=== PATIENT | female | born 1940 | race Caucasian/White ===

== ENCOUNTER 2023-10-06 08:25 | Emergency (ER) | payer MEDICARE, SELFPAY ==
[2023-10-06] VITALS (20 sets, daily range): BP systolic 94–146; BP diastolic 66–109; PULSE 79–162; RESP 18–20; TEMP 36.5; O2SAT 93–99; BMI 34.8
--- NOTE | 2023-10-06 08:38 | ED_ITS ---
HPI - Arrhythmia/Palpitations General Chief Complaint: Arrhythmia/Palpitations Stated Complaint: erratic pulse Time Seen by Provider: 10/06/23 08:38 Source: patient, family, RN notes reviewed and old records reviewed Mode of arrival: ambulatory Limitations: no limitations History of Present Illness HPI narrative: 83-year-old female who comes in today with generalized weakness starting this morning. She had breakfast around 6:30 AM and did not feel better. Has a pacemaker. Does not take any medications currently. No chest pain or shortness of breath. Says she got her pacemaker for a syncopal episode, unsure what her rhythm was at that time. Related Data Previous Rx's ?Medication ?Instructions ?Recorded apixaban 5 mg tablet (Eliquis) 5 mg PO BID #60 tabs 10/06/23 metoprolol succinate 25 mg 25 mg PO DAILY #30 tabs 10/06/23 tablet,extended release 24 hr Allergies Allergy/AdvReac Type Severity Reaction Status Date / Time Penicillins Allergy Verified 10/06/23 10:14 Exam Narrative: Exam Narrative: General: Well-developed and well-nourished, no acute distress Head: Atraumatic and normocephalic Eyes: Pupils are equal reactive, extraocular motions intact, conjunctiva clear ENT: External nose and ears are normal, posterior pharynx without erythema or exudate Neck: No midline cervical tenderness, full spontaneous range of motion the neck, trachea midline, no adenopathy Heart: Tachycardic and irregular Lungs: Clear to auscultation bilaterally without wheezes or crackles Abdomen: Soft, nontender, nondistended with active bowel sounds Musculoskeletal: No tenderness, deformity, or edema Neurologic: Awake, alert, and oriented x3, no gross focal neurologic deficits, cranial nerves intact as tested Psych: Mood and affect are appropriate Skin: No rashes Const: Vital Signs, click to edit/add: Vital Signs - 24 hr 10/06/23 08:28 10/06/23 08:33 10/06/23 08:38 Temperature 97.7 F Pulse Rate 151 H 152 H Pulse Rate [Right Pulse Oximeter] 162 H Respiratory Rate 20 Blood Pressure 126/91 H Blood Pressure [Ri ght Upper Arm] 146/88 H Pulse Oximetry 98 95 98 Oxygen Delivery Me thod Room Air 10/06/23 08:41 10/06/23 08:45 10/06/23 09:00 Temperature Pulse Rate 158 H 159 H 82 Pulse Rate [Right Pulse Oximeter] Respiratory Rate Blood Pressure 109/89 Blood Pressure [Ri ght Upper Arm] Pulse Oximetry 98 98 97 Oxygen Delivery Me thod 10/06/23 09:02 10/06/23 09:15 10/06/23 09:30 Temperature Pulse Rate 92 125 H 130 H Pulse Rate [Right Pulse Oximeter] Respiratory Rate Blood Pressure 119/78 Blood Pressure [Ri ght Upper Arm] Pulse Oximetry 94 95 96 Oxygen Delivery Me thod 10/06/23 09:42 10/06/23 09:45 10/06/23 10:00 Temperature Pulse Rate 102 H 90 108 H Pulse Rate [Right Pulse Oximeter] Respiratory Rate Blood Pressure 94/66 Blood Pressure [Ri ght Upper Arm] Pulse Oximetry 95 95 94 Oxygen Delivery Me thod 10/06/23 10:21 10/06/23 10:22 10/06/23 10:30 Temperature Pulse Rate 117 H 121 H 112 H Pulse Rate [Right Pulse Oximeter] Respiratory Rate Blood Pressure 134/109 H Blood Pressure [Ri ght Upper Arm] Pulse Oximetry 99 96 96 Oxygen Delivery Me thod 10/06/23 10:42 10/06/23 10:45 Temperature Pulse Rate 89 92 Pulse Rate [Right Pulse Oximeter] Respiratory Rate Blood Pressure 131/85 Blood Pressure [Ri ght Upper Arm] Pulse Oximetry 93 96 Oxygen Delivery Me thod Course Course ED Course: Patient seen and examined, prior records reviewed. Patient presents today with generalized weakness starting overnight, noted to be in atrial fibrillation with RVR on exam. No chest pain or shortness of breath with this and blood pressure is reassuring. Patient has pacemaker, unsure with the settings are. Will contact [facility] to discuss and plan to initiate metoprolol IV. Patient is not currently anticoagulated Reevaluation(s) Time of Reevaluation #1: 08:53 Reevaluation #1: Care discussed with Dr. Keller, [facility]. Confirm that patient had pacemaker placed for complete heart block, most recent interrogation at the end of August she was mostly in sinus rhythm with only 4.7% atrial pacing. Will aim for rate/rhythm control with beta-sissy, initiate Eliquis and follow- up with [facility] Time of Reevaluation #2: 09:31 Reevaluation #2: Patient with improvement of heart rate to the 90s but then did increase again. Labs ordered and independently interpreted by me with normal CBC, normal basic metabolic panel, negative troponin. Additional metoprolol ordered and will continue to monitor. Time of Reevaluation #3: 09:55 Reevaluation #3: Patient recheck, heart rate 80-110 after 2nd dose of metoprolol. We discussed atrial fibrillation and treatment of this. Discussed rate control versus rhythm control and follow-up plan. Labs independently interpreted by me with normal BNP but elevated D-dimer. CT PE study is ordered as patient has no history of atrial fibrillation and certainly pulmonary embolism could precipitate this. Additional Reevaluation(s): 10:[address] scan independently interpreted by me with small airway air trapping, no central pulmonary embolism. Heart rate in the 80s to 100s, will continue to monitor and still anticipate discharge. 1059 a.m. reviewed radiology interpretation of CT scan which shows some small airway trapping but no other acute findings. Heart rate consistently 80-100 after metoprolol, the oral dose likely is starting to have an affect now and should have continued improvement. Patient stable for discharge with outpatient follow-up with cardiology. Vital Signs Vital signs: Initial Vital Signs Temperature 97.7 F 10/06/23 08:28 Temperature Source Temporal Artery Scan 10/06/23 08:28 Pulse Rate 162 H 10/06/23 08:28 Respiratory Rate 20 10/06/23 08:28 Blood Pressure 146/88 H 10/06/23 08:28 Blood Pressure Mean 107 H 10/06/23 08:28 Blood Pressure Position Sitting 10/06/23 08:28 Pulse Oximetry 98 10/06/23 08:28 Oxygen Delivery Method Room Air 10/06/23 08:28 Vital Signs Temperature 97.7 F 10/06/23 08:28 Pulse Rate 162 H 10/06/23 08:28 Respiratory Rate 20 10/06/23 08:28 Blood Pressure 146/88 H 10/06/23 08:28 Pulse Oximetry 98 10/06/23 08:28 Oxygen Delivery Method Room Air 10/06/23 08:28 Temperature 97.7 F 10/06/23 08:28 Pulse Rate 92 10/06/23 10:45 Respiratory Rate 20 10/06/23 08:28 Blood Pressure 131/85 10/06/23 10:42 Pulse Oximetry 96 10/06/23 10:45 Oxygen Delivery Method Room Air 10/06/23 08:28 Medications Administered Medications: Discontinued Medications Generic Name Dose Route Start Last Admin Trade Name Hank PRN Reason Stop Dose Admin Apixaban 5 mg 10/06/23 08:55 10/06/23 09:17 Apixaban 5 Mg Tablet PO 10/06/23 08:56 5 mg ONCE ONE Administration Sodium Chloride 1,000 mls @ 1,000 mls/hr 10/06/23 09:00 10/06/23 09:17 0.9 % Sodium Chloride 1000 Ml IV 10/06/23 09:59 1,000 mls/hr .Q1H BRI Administration Metoprolol Succinate 25 mg 10/06/23 08:54 10/06/23 09:17 Metoprolol Succinate (Xl) 25 Mg Tab PO 10/06/23 08:55 25 mg ONCE ONE Administration Metoprolol Tartrate 5 mg 10/06/23 08:42 10/06/23 08:59 Metoprolol Tartrate 1 Mg/Ml Inj IVP 10/06/23 08:43 5 mg ONCE ONE Administration Metoprolol Tartrate 5 mg 10/06/23 09:32 10/06/23 09:41 Metoprolol Tartrate 1 Mg/Ml Inj IVP 10/06/23 09:33 5 mg ONCE ONE Administration MDM - Arrhythmia/Palpitations Lab Data Labs: Lab Results 10/06/23 10/06/23 10/06/23 Range/Units 08:45 08:57 09:23 WBC 6.98 (4.50-11.00) K/uL RBC 4.82 (4.00-5.20) m/uL Hgb 12.9 (12.0-16.0) gm/dL Hct 41.1 (33.0-51.0) % MCV 85 (80-100) fL MCH 27 (26-34) pg MCHC 31 L (32-36) gm/dL RDW Coeff of Mae 14.8 (11.5-15.5) % Plt Count 362 (140-440) K/uL Neut % (Auto) 70.3 (42.0-72.0) % Lymph % (Auto) 17.3 L (20-44) % [place] % (Auto) 8.7 (0.0-11.0) % Eos % (Auto) 2.7 (0.0-7.0) % Baso % (Auto) 0.7 (0.0-3.0) % Neut # (Auto) 4.90 (1.7-7.0) K/uL Lymph # (Auto) 1.20 (0.90-2.90) K/uL [place] # (Auto) 0.60 (0.00-0.90) K/UL Eos # (Auto) 0.19 (0.00-0.50) K/uL Baso # (Auto) 0.05 (0.00-0.30) K/uL Abs Immat Gran (auto) 0.02 (0.00-0.30) K/uL Imm/Tot Granulo (auto) 0.3 % D-Dimer Quant (PE/DVT) 1.18 H (0.00-0.50) ug/ml Sodium 137 (135-149) mmol/L Potassium 3.9 (3.6-5.1) mmol/L Chloride 107 (96-114) mmol/L Carbon Dioxide 21 (20-32) mmol/L Anion Gap 9 (7-15) mEq/L BUN 25 (7-30) mg/dL Creatinine 0.9 (0.5-1.5) mg/dL Estimated Creat Clear 34.90 Estimated GFR 64 ml/min Glucose 102 (60-115) mg/dL Calcium 9.1 (8.4-10.6) mg/dL Magnesium 2.1 (1.5-2.6) mg/dL NT-Pro-B Natriuret Pep 915 pg/mL Urine Color Yellow (Yellow) Urine Appearance Clear (Clear) Urine pH 5.0 (5.0-8.5) Ur Specific [place] <= 1.005 (1.000-1.030) Urine Protein Negative (Negative) Urine Glucose (UA) Negative (Negative) Urine Ketones Negative (Negative) Urine Blood Negative (Negative) Urine Nitrite Negative (Negative) Urine Bilirubin Negative (Negative) Urine Urobilinogen 0.2 (0.2-1.0) Ur Leukocyte Esterase Trace A (Negative) Urine RBC 0-2 (0-2) Urine WBC 0-2 (0-5) Ur Squamous Epith Cells Few (None-Few) Urine Bacteria None (None) POC Troponin I 0.04 (0.01-0.04) ng/ml Discharge Plan Discharge Clinical Impression: Atrial fibrillation with RVR Patient Disposition: Home, Self-Care Condition: Improved Instructions: A-fib (Atrial Fibrillation) (ED), Blood Thinners (ED) Additional Instructions: 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 If after 2-3 days your heart rate is still consistently over 100, increase the dose of metoprolol to 2 tablets daily Activity Level: Activity as Tolerated Discharge Diet: Regular Prescriptions: New metoprolol succinate 25 mg tablet extended release 24 hr 25 mg PO DAILY Qty: 30 0RF Eliquis 5 mg tablet 5 mg PO BID Qty: 60 0RF Follow Up/Referrals: Srikanth Sarkar MD [Referring] - Stand Alone Forms: [employer] Info Instructions
[2023-10-06] MEDS: METOPROLOL TARTRATE 1 MG/ML inj 5 MG IVP ×2 (08:59→09:41)
[2023-10-06 09:02] LABS: Troponin, Point-of-Care* 0.04 ng/ml (0.01-0.04)
[2023-10-06 09:07] LABS: Basophils Absolute Auto 0.05 K/uL (0.00-0.30); Basophils Percent Auto 0.7 % (0.0-3.0); Eosinophils Absolute Auto 0.19 K/uL (0.00-0.50); Eosinophils Percent Auto 2.7 % (0.0-7.0); Hematocrit 41.1 % (33.0-51.0); Hemoglobin* 12.9 gm/dL (12.0-16.0); Immature Granulocytes Abs Auto 0.02 K/uL (0.00-0.30); Immature Granulocytes Pct Auto 0.3 %; Lymphocytes Percent Auto 17.3 % (20-44); Mean Corpuscular HGB Conc 31 gm/dL (32-36); Mean Corpuscular Hemoglobin 27 pg (26-34); Mean Corpuscular Volume 85 fL (80-100); Monocytes Percent Auto 8.7 % (0.0-11.0); Neutrophils Percent Auto 70.3 % (42.0-72.0); Platelet Count* 362 K/uL (140-440); RDW Coefficient of Variation % 14.8 % (11.5-15.5); Red Blood Count 4.82 m/uL (4.00-5.20); White Blood Count* 6.98 K/uL (4.50-11.00)
[2023-10-06 09:11] LABS: Slide Review Reflex No
[2023-10-06] MEDS: METOPROLOL SUCCINATE (XL) 25 MG TAB PO (09:17)
[2023-10-06] MEDS: APIXABAN 5 MG TABLET PO (09:17)
[2023-10-06] MEDS: 0.9 % SODIUM CHLORIDE 1000 ml 1,000 ML IV (09:17)
[2023-10-06 09:20] LABS: Chloride* 107 mmol/L (96-114); Potassium* 3.9 mmol/L (3.6-5.1); Sodium* 137 mmol/L (135-149)
[2023-10-06 09:23] LABS: Anion Gap 9 mEq/L (7-15); Blood Urea Nitrogen* 25 mg/dL (7-30); Carbon Dioxide* 21 mmol/L (20-32); Creatinine* 0.9 mg/dL (0.5-1.5); Estimated Glomerular Filt Rate 64 ml/min
[2023-10-06 09:24] LABS: Calcium* 9.1 mg/dL (8.4-10.6); Glucose* 102 mg/dL (60-115); Magnesium* 2.1 mg/dL (1.5-2.6)
[2023-10-06 09:33] LABS: NT Pro B Type NatriureticPept* 915 pg/mL
[2023-10-06 09:40] LABS: D Dimer Quantitative* 1.18 ug/ml (0.00-0.50)
--- NOTE | 2023-10-06 09:56 | CRLHL7_ITS ---
For Patients: As a result of the Century Cures Act, medical imaging exams and procedure reports are released immediately into your electronic medical record. You may view this report before your referring provider. If you have questions, please contact your health care provider. INDICATION: New atrial fibrillation. Elevated D-dimer. COMPARISON: None provided. TECHNIQUE: 95 mL [id number] IV contrast with pulmonary arterial imaging. FINDINGS: Excellent opacification of pulmonary arterial vessels with no filling defects. Central pulmonary artery caliber is normal with no right heart strain findings. Aortic caliber is normal with no obvious dissection. No mediastinal hemorrhage. Scattered atherosclerotic vascular calcifications of the non aneurysmal aorta. Cholecystectomy clips in the upper abdomen. 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 Calcified capsule at the anterior spleen may be remote posttraumatic etiology. Mosaic attenuation of lung parenchyma suggests small airways disease with some air trapping. No consolidation for focal pneumonia. Visualized central airways appear patent. Normal heart size. No pericardial or pleural effusion. Left chest pacer body and right heart transvenous wires. No significant bone finding. IMPRESSION: 1. No acute pulmonary embolism. 2. Mosaic attenuation lung parenchyma may be small airways disease versus less likely chronic peripheral PEs. No right heart strain finding. Please note that all CT scans at this facility use dose modulation, iterative reconstruction, and/or weight-based dosing when appropriate to reduce radiation dose to as low as reasonably achievable. Dictated by Jorge Mcdonough MD @ 10/06/2023 10:32:02 AM (Electronically Signed)
[2023-10-06 10:08] LABS: Appearance Urine Clear (Clear); Bilirubin Urine Negative (Negative); Blood Urine Negative (Negative); Color Urine Yellow (Yellow); Glucose Urine Negative (Negative); Ketones Urine Negative (Negative); Leukocyte Esterase Urine Trace (Negative); Nitrite Urine Negative (Negative); Protein Urine Negative (Negative); Specific Gravity Urine <= 1.005 (1.000-1.030); Urobilinogen Urine 0.2 (0.2-1.0)
[2023-10-06 10:17] LABS: RBC Urine 0-2 (0-2); Squamous Epithelial Cell Urine Few (None-Few); WBC Urine 0-2 (0-5)
== END 2023-10-06 11:33 | disposition home or self-care (01) ==
PROVIDERS: Emergency Provider Family Medicine
DX: R00.1 Bradycardia, unspecified (principal)
CPT/HCPCS: 36415; 71275; 80048; 81001; 83735; 83880; 84484; 85025; 85379; 87086; 93005; 99284; 99285; A9270; J7030; Q9967

== ENCOUNTER 2023-10-12 12:02 | Emergency (ER) | payer MEDICARE, SELFPAY ==
[2023-10-12 12:39] VITALS: BP 157/84; PULSE 57; RESP 16; TEMP 36.2; O2SAT 98; BMI 32.9
--- NOTE | 2023-10-12 12:54 | CRLHL7_ITS ---
For Patients: As a result of the Century Cures Act, medical imaging exams and procedure reports are released immediately into your electronic medical record. You may view this report before your referring provider. If you have questions, please contact your health care provider. INDICATION: Weakness. TECHNIQUE: Chest 1 views. COMPARISON: None. FINDINGS: Cardiovascular and mediastinum: Heart size and vasculature are normal in caliber and appearance. Left chest wall pacemaker device. Lungs and pleural spaces: Low lung volumes. No sign of infiltrate or mass. No sign of pleural effusion. No pneumothorax. Bones and soft tissues: No significant findings. IMPRESSION: No acute or significant findings. Dictated by Eleazar Tavarez MD @ 10/12/2023 1:46:25 PM (Electronically Signed)
--- NOTE | 2023-10-12 12:55 | ED.WEAKNESS ---
HPI - Weakness General Chief complaint: Weakness Stated complaint: weakness Time Seen by Provider: 10/12/23 12:32 History of Present Illness HPI Narrative: Patient is 83-year-old woman who was seen in the emergency room 6 days ago for atrial fibrillation with rapid ventricular rate. She does have a pacemaker that was placed for complete heart block in August of 2023. During her last visit in the ER her atrial fibrillation was treated with beta blockade and Eliquis. She has been doing reasonably well but today feels incredibly fatigued. She has had no chest pain no shortness a breath orthopnea no PND. No leg swelling she is otherwise in her usual state of health. She has no urinary frequency or signs of infection. Related Data Previous Rx's ?Medication ?Instructions ?Recorded apixaban 5 mg tablet (Eliquis) 5 mg PO BID #60 tabs 10/06/23 metoprolol succinate 25 mg 25 mg PO DAILY #30 tabs 10/06/23 tablet,extended release 24 hr Allergies Allergy/AdvReac Type Severity Reaction Status Date / Time Penicillins Allergy Verified 10/06/23 10:14 Review of Systems Status of ROS: Reports: 10 or more systems reviewed and unremarkable except as noted in History and [facility] Medical History Atrial fibrillation with RVR ?I48.91 - Unspecified atrial fibrillation (ICD-10) Surgical History Status post placement of cardiac pacemaker ?Z95.0 - Presence of cardiac pacemaker (ICD-10) Social History Smoking Status: Never smoker Do you use any of these nicotine containing products: None How often do you have a drink containing alcohol: never AUDIT-C Alcohol total score: 0 Non-prescribed substance use: denies use Exam Narrative: Exam Narrative: EXAM GENERAL: Patient appears comfortable and well. EYES: No scleral icterus. ENT: Tympanic membranes and oropharynx normal. THYROID: no thyroid nodules or thyromegaly. LYMPH: No supraclavicular or cervical lymphadenopathy. SKIN: Visible skin seen during exam normal or with benign process only. EXT: No dependent lower extremity pedal edema. HEART: Regular rate and rhythm with no murmurs, rubs, or gallops. LUNGS: Clear to auscultation bilaterally with no crackles or wheezes. ABD: Soft, non tender, non distended. PSYCH: Good eye contact, speech is not pressured. Const: Vital Signs, click to edit/add: Vital Signs - 24 hr 10/12/23 12:39 Temperature 97.2 F L Pulse Rate [Pulse Oximeter] 57 L Respiratory Rate 16 Blood Pressure [Ri ght Forearm] 157/84 H Pulse Oximetry 98 Oxygen Delivery Me thod Room Air Course Course ED Course: Patient seen and examined. EKG troponin D-dimer CBC basic metabolic panel ordered. 1 L normal saline given. Vital Signs Vital signs: Initial Vital Signs Temperature 97.2 F L 10/12/23 12:39 Temperature Source Temporal Artery Scan 10/12/23 12:39 Pulse Rate 57 L 10/12/23 12:39 Pulse Rhythm Regular 10/12/23 12:39 Respiratory Rate 16 10/12/23 12:39 Blood Pressure 157/84 H 10/12/23 12:39 Blood Pressure Mean 108 H 10/12/23 12:39 Blood Pressure Position Supine 10/12/23 12:39 Pulse Oximetry 98 10/12/23 12:39 Oxygen Delivery Method Room Air 10/12/23 12:39 Vital Signs Temperature 97.2 F L 10/12/23 12:39 Pulse Rate 57 L 10/12/23 12:39 Respiratory Rate 16 10/12/23 12:39 Blood Pressure 157/84 H 10/12/23 12:39 Pulse Oximetry 98 10/12/23 12:39 Oxygen Delivery Method Room Air 10/12/23 12:39 Temperature 97.2 F L 10/12/23 12:39 Pulse Rate 57 L 10/12/23 12:39 Respiratory Rate 16 10/12/23 12:39 Blood Pressure 157/84 H 10/12/23 12:39 Pulse Oximetry 98 10/12/23 12:39 Oxygen Delivery Method Room Air 10/12/23 12:39 MDM - Weakness MDM Narrative Medical decision making narrative: Patient is a is a 83-year-old woman comes in today just not feeling well. She has a pacemaker in place but was found to have atrial fibrillation with RVR. She was started on metoprolol and Eliquis. She comes in not feeling well with fatigue and her pulse is in the 50s. Troponin is negative D-dimer is lower than it was during her last visit during which time she had a negative CT scan. I do not see any significant findings on her CBC or electrolytes. This time reassurance is offered. I did ask her to discontinue her beta blockade and to follow-up with her doctor as scheduled this week. Lab Data Labs: Lab Results 10/12/23 10/12/23 10/12/23 Range/Units 13:24 13:38 14:02 WBC 6.33 (4.50-11.00) K/uL RBC 4.48 (4.00-5.20) m/uL Hgb 12.2 (12.0-16.0) gm/dL Hct 38.0 (33.0-51.0) % MCV 85 (80-100) fL MCH 27 (26-34) pg MCHC 32 (32-36) gm/dL RDW Coeff of Mae 14.7 (11.5-15.5) % Plt Count 338 (140-440) K/uL Neut % (Auto) 64.3 (42.0-72.0) % Lymph % (Auto) 20.9 (20-44) % [place] % (Auto) 9.6 (0.0-11.0) % Eos % (Auto) 4.1 (0.0-7.0) % Baso % (Auto) 0.9 (0.0-3.0) % Neut # (Auto) 4.07 (1.7-7.0) K/uL Lymph # (Auto) 1.32 (0.90-2.90) K/uL [place] # (Auto) 0.60 (0.00-0.90) K/UL Eos # (Auto) 0.26 (0.00-0.50) K/uL Baso # (Auto) 0.06 (0.00-0.30) K/uL Abs Immat Gran (auto) 0.01 (0.00-0.30) K/uL Imm/Tot Granulo (auto) 0.2 % D-Dimer Quant (PE/DVT) 0.58 H (0.00-0.50) ug/ml Sodium 140 (135-149) mmol/L Potassium 4.1 (3.6-5.1) mmol/L Chloride 104 (96-114) mmol/L Carbon Dioxide 25 (20-32) mmol/L Anion Gap 11 (7-15) mEq/L BUN 18 (7-30) mg/dL Creatinine 0.8 (0.5-1.5) mg/dL Estimated Creat Clear 34.90 Estimated GFR 74 ml/min Glucose 89 (60-115) mg/dL Urine Color Yellow (Yellow) Urine Appearance Clear (Clear) Urine pH 5.5 (5.0-8.5) Ur Specific [place] <= 1.005 (1.000-1.030) Urine Protein Negative (Negative) Urine Glucose (UA) Negative (Negative) Urine Ketones Negative (Negative) Urine Blood Negative (Negative) Urine Nitrite Negative (Negative) Urine Bilirubin Negative (Negative) Urine Urobilinogen 0.2 (0.2-1.0) Ur Leukocyte Esterase Negative (Negative) POC Troponin I 0.01 (0.01-0.04) ng/ml Discharge Plan Discharge Clinical Impression: Bradycardia Patient Disposition: Home, Self-Care Condition: Stable Instructions: Bradycardia (ED) Additional Instructions: Discontinue Metoprolol Continue current care Monitor symptoms Follow-up with your doctor as scheduled. Activity Level: No Restrictions Discharge Diet: Regular Prescriptions: No Action metoprolol succinate 25 mg tablet extended release 24 hr 25 mg PO DAILY Qty: 30 0RF Eliquis 5 mg tablet 5 mg PO BID Qty: 60 0RF Follow Up/Referrals: Provider,Not a Local [Primary Care Provider] - Stand Alone Forms: [employer] Info Instructions
[2023-10-12 13:44] LABS: Basophils Absolute Auto 0.06 K/uL (0.00-0.30); Basophils Percent Auto 0.9 % (0.0-3.0); Eosinophils Absolute Auto 0.26 K/uL (0.00-0.50); Eosinophils Percent Auto 4.1 % (0.0-7.0); Hemoglobin* 12.2 gm/dL (12.0-16.0); Immature Granulocytes Abs Auto 0.01 K/uL (0.00-0.30); Immature Granulocytes Pct Auto 0.2 %; Lymphocytes Absolute Auto 1.32 K/uL (0.90-2.90); Lymphocytes Percent Auto 20.9 % (20-44); Mean Corpuscular HGB Conc 32 gm/dL (32-36); Mean Corpuscular Hemoglobin 27 pg (26-34); Mean Corpuscular Volume 85 fL (80-100); Monocytes Percent Auto 9.6 % (0.0-11.0); Neutrophils Absolute Auto 4.07 K/uL (1.7-7.0); Neutrophils Percent Auto 64.3 % (42.0-72.0); Platelet Count* 338 K/uL (140-440); RDW Coefficient of Variation % 14.7 % (11.5-15.5); Red Blood Count 4.48 m/uL (4.00-5.20); White Blood Count* 6.33 K/uL (4.50-11.00)
[2023-10-12 13:53] LABS: Slide Review Reflex No
[2023-10-12 14:11] LABS: Appearance Urine Clear (Clear); Bilirubin Urine Negative (Negative); Blood Urine Negative (Negative); Color Urine Yellow (Yellow); Glucose Urine Negative (Negative); Ketones Urine Negative (Negative); Leukocyte Esterase Urine Negative (Negative); Nitrite Urine Negative (Negative); Protein Urine Negative (Negative); Specific Gravity Urine <= 1.005 (1.000-1.030); Urobilinogen Urine 0.2 (0.2-1.0); pH Urine 5.5 (5.0-8.5)
[2023-10-12 14:13] LABS: Troponin, Point-of-Care* 0.01 ng/ml (0.01-0.04)
[2023-10-12 14:13] LABS: Anion Gap 11 mEq/L (7-15); Blood Urea Nitrogen* 18 mg/dL (7-30); Carbon Dioxide* 25 mmol/L (20-32); Chloride* 104 mmol/L (96-114); Creatinine* 0.8 mg/dL (0.5-1.5); Estimated Glomerular Filt Rate 74 ml/min; Glucose* 89 mg/dL (60-115); Potassium* 4.1 mmol/L (3.6-5.1); Sodium* 140 mmol/L (135-149)
[2023-10-12 14:24] LABS: D Dimer Quantitative* 0.58 ug/ml (0.00-0.50)
[2023-10-13 20:41] LABS: Troponin I* < 0.01 ng/mL (0.01-0.04)
== END 2023-10-12 14:54 | disposition home or self-care (01) ==
PROVIDERS: Emergency Provider Internal Medicine
DX: R00.1 Bradycardia, unspecified (principal)
CPT/HCPCS: 36415; 71045; 80048; 81003; 84484; 85025; 85379; 93005; 99283; 99284

== ENCOUNTER 2024-03-07 08:56 | Emergency (ER) | payer MEDICARE, SELFPAY ==
[2024-03-07 09:01] VITALS: BP 173/84; PULSE 69; RESP 18; TEMP 36.4; O2SAT 99; BMI 36.6
--- NOTE | 2024-03-07 09:26 | CRLHL7_ITS ---
For Patients: As a result of the Cures Act, medical imaging exams and procedure reports are released immediately into your electronic medical record. You may view this report before your referring provider. If you have questions, please contact your health care provider. Indication: Recent fall, hip and knee joint pain Technique: Right femur 4 views Comparison: None Findings: Bones: Alignment is normal. No fractures or bone lesions. Small superior patellar enthesophyte. Joint spaces: Moderate degenerative change of the right hip characterized by joint space narrowing and osteophyte formation. Moderate to severe medial compartment joint space narrowing of knee. No joint effusion. Soft tissues: Vascular calcifications Impression: No acute findings. Dictated by Nery Alejandro MD @ 03/07/2024 10:18:40 AM (Electronically Signed)
--- NOTE | 2024-03-07 09:27 | ED.GENADULT ---
HPI - General Adult General Chief complaint: Fall/Minor Trauma Stated complaint: fall - (R) side hip/knee pain Time Seen by Provider: 03/07/24 09:17 Source: patient Mode of arrival: ambulatory Limitations: no limitations History of Present Illness HPI narrative: Female coming in today complaining of right hip thigh and knee pain on the right side after she fell yesterday. Patient states she was walking into her room to get ready for bed and she fell. She is not sure how she fell. She is also not sure how she hit the ground. She believes she fell on her right side but she really does not know. She does know that she did not hit her head or lose consciousness. She does know that she was able to get up right away and rock the rest of the way to her room and get into bed. It was approximately 5 hours later at 3:00 a.m. in the morning when she was in a lot of discomfort. She states this morning she could hardly walk. Again, pain is located in the lateral right hip thigh and the knee. Patient is on anticoagulation. Related Data Previous Rx's ?Medication ?Instructions ?Recorded apixaban 5 mg tablet (Eliquis) 5 mg PO BID #60 tabs 10/06/23 metoprolol succinate 25 mg 25 mg PO DAILY #30 tabs 10/06/23 tablet,extended release 24 hr Allergies Allergy/AdvReac Type Severity Reaction Status Date / Time Penicillins Allergy Verified 03/07/24 09:07 Review of Systems Status of ROS: Reports: 6 or more systems reviewed and unremarkable except as noted in History and below [facility] Medical History Atrial fibrillation with RVR ?I48.91 - Unspecified atrial fibrillation (ICD-10) Surgical History Status post placement of cardiac pacemaker ?Z95.0 - Presence of cardiac pacemaker (ICD-10) Social History Smoking Status: Never smoker Do you use any of these nicotine containing products: None How often do you have a drink containing alcohol: never AUDIT-C Alcohol total score: 0 Non-prescribed substance use: denies use Exam Narrative: Exam Narrative: Well-nourished well-developed patient in no acute distress. Alert and oriented. Answers questions appropriately. Mood and affect are appropriate. Thoughts are goal oriented and rational. No tangential or magical thinking noted. Patient speaks in full sentences without needing to catch her breath. Speaking and breathing without difficulty. HEENT: Normocephalic atraumatic. No trauma noted to the face or scalp. Pupils are equally round reactive to light. Extraocular muscles are intact. Conjunctivae are moist without any icterus noted. Moist mucous membranes. Neck is supple. Abdomen: Soft and nontender nondistended with normal bowel sounds. Extremities: Bilateral lower extremities are without edema. Patient has a fresh ecchymosis over the right knee that is small. There is no obvious joint swelling. She cannot move at the hip secondary to pain. She has tenderness over the patella and the lateral joint line of the knee. There is no bruising at the hip. She also has tenderness to palpation of the mid femur. There is no obvious swelling or ecchymosis noted of the thigh. Skin: Well perfused. No broken skin. Back: No tenderness to the cervical, thoracic or lumbar spine. Full range of motion of the neck without pain. No bruising noted of the back. Const: Vital Signs, click to edit/add: Vital Signs - 24 hr 03/07/24 09:01 Temperature 97.6 F Pulse Rate [Right Pulse Oximeter] 69 Respiratory Rate 18 Blood Pressure [Ri ght Upper Arm] 173/84 H Pulse Oximetry 99 Oxygen Delivery Me thod Room Air Course Course ED Course: Who proceeded with a femur x-ray which included the hip and the knee joint. This was all unremarkable aside from arthritis. Vital Signs Vital signs: Initial Vital Signs Temperature 97.6 F 03/07/24 09:01 Temperature Source Temporal Artery Scan 03/07/24 09:01 Pulse Rate 69 03/07/24 09:01 Pulse Rhythm Regular 03/07/24 09:01 Respiratory Rate 18 03/07/24 09:01 Blood Pressure 173/84 H 03/07/24 09:01 Blood Pressure Mean 113 H 03/07/24 09:01 Blood Pressure Position Sitting 03/07/24 09:01 Pulse Oximetry 99 03/07/24 09:01 Oxygen Delivery Method Room Air 03/07/24 09:01 Vital Signs Temperature 97.6 F 03/07/24 09:01 Pulse Rate 69 03/07/24 09:01 Respiratory Rate 18 03/07/24 09:01 Blood Pressure 173/84 H 03/07/24 09:01 Pulse Oximetry 99 03/07/24 09:01 Oxygen Delivery Method Room Air 03/07/24 09:01 Temperature 97.6 F 03/07/24 09:01 Pulse Rate 69 03/07/24 09:01 Respiratory Rate 18 03/07/24 09:01 Blood Pressure 173/84 H 03/07/24 09:01 Pulse Oximetry 99 03/07/24 09:01 Oxygen Delivery Method Room Air 03/07/24 09:01 Medical Decision Making MDM Narrative Medical decision making narrative: 83-year-old female status post fall. The likely bony contusion vest versus musculoskeletal pain. No evidence of fractures noted. We did discuss the possibility of an occult fracture that was missed on x-ray. However given the fact that she fell her pain start for several hours this is less likely although not impossible and this was explained to both her and her daughter. We discussed symptomatic treatment reasons for follow-up. Patient assures me that she will be able to get around her home. She will be using a cane. Imaging Data Femur x-ray: Attestation: I have reviewed the pertinent imaging results. Radiologist's impression: Technique: Right femur 4 views Comparison: None Findings: Bones: Alignment is normal. No fractures or bone lesions. Small superior patellar enthesophyte. Joint spaces: Moderate degenerative change of the right hip characterized by joint space narrowing and osteophyte formation. Moderate to severe medial compartment joint space narrowing of knee. No joint effusion. Soft tissues: Vascular calcifications Impression: No acute findings. Discharge Plan Discharge Clinical Impression: Fall, Acute hip pain, Acute leg pain Patient Disposition: Home, Self-Care Condition: Stable Instructions: Heat Pack Application (ED) Additional Instructions: Okay to use Tylenol as needed/as directed. Okay to use a heating pad or ice to the sore areas. Do not apply heat or ice directly to the skin do not apply either for more than 20 minutes at a time. If you are not feeling improvement over the next week, follow-up with your primary care provider as you may need further imaging. Prescriptions: No Action metoprolol succinate 25 mg tablet extended release 24 hr 25 mg PO DAILY Qty: 30 0RF Eliquis 5 mg tablet 5 mg PO BID Qty: 60 0RF Follow Up/Referrals: Provider,Not a Local [Primary Care Provider] - Stand Alone Forms: [place] Info Instructions
== END 2024-03-07 11:06 | disposition home or self-care (01) ==
PROVIDERS: Emergency Provider Family Medicine
DX: M25.561 Pain in right knee (principal); M25.551 Pain in right hip; W19.XXXA Unspecified fall, initial encounter
CPT/HCPCS: 73552; 99283; 99284

== ENCOUNTER 2024-04-19 09:18 | Emergency (ER) | payer MEDICARE, SELFPAY ==
[2024-04-19] VITALS (13 sets, daily range): BP systolic 85–143; BP diastolic 60–85; PULSE 83–158; RESP 18–20; TEMP 36.4; O2SAT 95–97; BMI 36.6
[2024-04-19 10:16] LABS: Basophils Absolute Auto 0.04 K/uL (0.00-0.30); Basophils Percent Auto 0.8 % (0.0-3.0); Eosinophils Absolute Auto 0.17 K/uL (0.00-0.50); Eosinophils Percent Auto 3.6 % (0.0-7.0); Hematocrit 38.1 % (33.0-51.0); Hemoglobin* 12.2 gm/dL (12.0-16.0); Lymphocytes Absolute Auto 0.99 K/uL (0.90-2.90); Lymphocytes Percent Auto 20.9 % (20-44); Mean Corpuscular HGB Conc 32 gm/dL (32-36); Mean Corpuscular Hemoglobin 26 pg (26-34); Mean Corpuscular Volume 81 fL (80-100); Monocytes Percent Auto 12.3 % (0.0-11.0); Neutrophils Absolute Auto 2.95 K/uL (1.7-7.0); Neutrophils Percent Auto 62.4 % (42.0-72.0); Platelet Count* 344 K/uL (140-440); RDW Coefficient of Variation % 15.5 % (11.5-15.5); Red Blood Count 4.71 m/uL (4.00-5.20); White Blood Count* 4.73 K/uL (4.50-11.00)
[2024-04-19 10:18] LABS: Slide Review Reflex No
--- NOTE | 2024-04-19 10:26 | ED_ITS ---
HPI - General Adult General Date Seen: 04/19/24 Chief complaint: Weakness Stated complaint: dizzy/lightheaded-cold symptoms Time Seen by Provider: 04/19/24 10:22 History of Present Illness HPI narrative: 83-year-old female presenting to the ER today with her daughter. She has had cold symptoms for the past 5 days (starting Sunday) with some upper airway congestion. Since about 3:00 a.m. this morning she just has been feeling worse. She is weak. She is unsteady. She is short of breath with exertion. She does not sure if she has a history of AFib but she does have a pacemaker. According to her previous ER notes she is on metoprolol and apixaban and has a history of AFib with RVR. Records also show that she had a pacemaker placed after a syncopal event associated with complete heart block. She was seen here in the ER in September 2023 with AFib with RVR. She was initiated on metoprolol and Eliquis for stroke prophylaxis after that ER visit with the plan for to follow up with [facility] [place]. Patient says she did have follow-up with her doctors at [facility], apparently last fall. She still on Eliquis. She is no longer on the metoprolol. She does not really ever feel palpitations from AFib so she does not know if she goes in and out of it are non her she has been AFib free since last summer. She has been sick for the past 3 or 4 days with symptoms that are URI. Nasal congestion. He not really sore throat. Very mild cough. Until this morning, she has not had any shortness of breath or fever. No chest pain Overnight last night and this morning she got worse. She is feeling more short of breath. She is feeling weak and somewhat off balance. She is not having any chest pain. No change in her cough. No new fever. No headache. No vomiting or diarrhea. She is found to be in atrial fibrillation with rapid ventricular response but is not even feeling palpitations. She is not having any other symptoms with her heart. Related Data Previous Rx's ?Medication ?Instructions ?Recorded apixaban 5 mg tablet (Eliquis) 5 mg PO BID #60 tabs 10/06/23 metoprolol succinate 25 mg 25 mg PO DAILY #30 tabs 06/29/24 tablet,extended release 24 hr metoprolol succinate 50 mg 50 mg PO DAILY #30 tabs 04/19/24 tablet,extended release 24 hr nirmatrelvir 300 mg (150 mg See Rx Instructions PO .COMPLEX 04/19/24 x2)-ritonavir 100 mg tablet,dose #30 ea pack (Paxlovid) Allergies Allergy/AdvReac Type Severity Reaction Status Date / Time Penicillins Allergy Verified 04/19/24 09:33 novacaine Allergy Intermediate Uncoded 04/19/24 09:34 [facility] Medical History Atrial fibrillation with RVR ?I48.91 - Unspecified atrial fibrillation (ICD-10) Surgical History Status post placement of cardiac pacemaker ?Z95.0 - Presence of cardiac pacemaker (ICD-10) Social History Smoking Status: Never smoker Do you use any of these nicotine containing products: None How often do you have a drink containing alcohol: never How often do you have six or more drinks on one occasion: Never AUDIT-C Alcohol total score: 0 Non-prescribed substance use: denies use service: No Exam Narrative: Exam Narrative: Constitutional: Appears well-developed and well-nourished. Alert. Conversant. Non toxic. Very polite. Daughter attentively underside HENT: Head: Atraumatic. Nose: Nose normal. Mouth/Throat: Oral mucosa is clear and moist. no trismus. Pharynx minimally erythematous. Tonsils symmetric. No tonsillar enlargement, erythema, or exudate. Eyes: Conjunctivae normal. EOM normal. Pupils equal, round, and reactive to light. No scleral icterus. Neck: Normal range of motion. Neck supple. No tracheal deviation present. Cardiovascular: Tachycardic, irregularly irregular rhythm. No gallop. No friction rub. No murmur heard. Symmetric radial artery pulses . No JVD Pulmonary/Chest: Effort normal. No stridor. No respiratory distress. No wheezes. No rales. No rhonchi . No tenderness. Abdominal: Soft. Bowel sounds normal. No distension. No mass. No tenderness. No rebound. No guarding. Musculoskeletal: RUE: Normal range of motion. No tenderness. No deformity LUE: Normal range of motion. No tenderness. No deformity RLE: Normal range of motion. No edema. No tenderness. No deformity LLE: Normal range of motion. No edema. No tenderness. No deformity Lymph: No cervical adenopathy. Neurological: Alert and oriented to person, place, and time. Normal strength. CN II-VII intact. No sensory deficit. GCS eye subscore is 4. GCS verbal subscore is 5. GCS motor subscore is 6. Normal coordination Skin: Skin is warm and dry. No rash noted. No pallor. Normal capillary refill. Psychiatric: Normal mood. Normal affect. Const: Vital Signs, click to edit/add: Vital Signs - 24 hr 04/19/24 09:33 04/19/24 09:34 04/19/24 09:37 Temperature 97.5 F L Pulse Rate 123 H Pulse Rate [Pulse Oximeter] 158 H Respiratory Rate Blood Pressure 104/75 Blood Pressure [Ri ght Upper Arm] 104/75 Pulse Oximetry 96 [facility] 04/19/24 09:45 04/19/24 10:00 04/19/24 10:15 Temperature Pulse Rate 154 H 150 H 143 H Pulse Rate [Pulse Oximeter] Respiratory Rate 20 Blood Pressure Blood Pressure [Ri ght Upper Arm] Pulse Oximetry 96 96 96 [facility] 04/[facility]/24 10:30 04/19/24 10:45 04/19/24 11:00 Temperature Pulse Rate 123 H 104 H 122 H Pulse Rate [Pulse Oximeter] Respiratory Rate Blood Pressure Blood Pressure [Ri ght Upper Arm] Pulse Oximetry 96 97 96 [facility] 04/[facility]/24 11:07 04/19/24 11:14 04/19/24 11:15 Temperature Pulse Rate 110 H 89 83 Pulse Rate [Pulse Oximeter] Respiratory Rate Blood Pressure 85/60 L 143/85 H Blood Pressure [Ri ght Upper Arm] Pulse Oximetry 96 97 95 [facility] 04/19/24 12:35 Temperature Pulse Rate Pulse Rate [Pulse Oximeter] 98 Respiratory Rate 18 Blood Pressure Blood Pressure [Ri ght Upper Arm] 143/85 H Pulse Oximetry Oxygen Delivery Ma thod Course Course ED Course: Recheck-feeling much better after fluids and metoprolol. Heart rate down to the 80s and 90s but still AFib on the monitor. Breathing easily. Oxygen in the 90s. Blood pressure stable, in fact has come up. Initially was 104/75, most recently 143/85. Reevaluation(s) Reevaluation #1: Recheck-continues to feel well. Discussed with [facility], Dr. He. We reviewed the patient's previous history. He says that he is not sure why the patient is off metoprolol. According to her recent clinic notes the plan was for her to remain on metoprolol and Eliquis because of her AFib. Apparently interrogation of her pacemaker did show some episodes of paroxysmal AFib last fall. He would agree that since she is rate controlled she is safe for outpatient management and would have the patient restarted on metoprolol XL 50 mg daily through the ER today. Patient should call for a follow-up cardiology appointment within the next 1-3 weeks Vital Signs Vital signs: Initial Vital Signs Blood Pressure 104/75 04/19/24 09:33 Blood Pressure Mean 84 04/19/24 09:33 Vital Signs Blood Pressure 104/75 04/19/24 09:33 Temperature 97.5 F L 04/19/24 09:34 Pulse Rate 98 04/19/24 12:35 Respiratory Rate 18 04/19/24 12:35 Blood Pressure 143/85 H 04/19/24 12:35 Pulse Oximetry 95 04/19/24 11:15 Oxygen Delivery Method Room Air 04/19/24 09:34 Medications Administered Medications: Discontinued Medications Generic Name Dose Route Start Last Admin Trade Name Freq PRN Reason Stop Dose Admin Sodium Chloride 500 mls @ 500 mls/hr 04/19/24 10:31 04/19/24 12:35 0.9 % Sodium Chloride 500 Ml IV 04/19/24 11:30 Infused .Q1H ONE Infusion Metoprolol Tartrate 5 mg 04/19/24 10:48 04/19/24 11:04 Metoprolol Tartrate 1 Mg/Ml Inj IVP 04/19/24 10:49 5 mg ONCE ONE Administration Medical Decision Making MDM Narrative Medical decision making narrative: This patient presents for evaluation of shortness of breath, weakness, dizziness, unsteadiness that began overnight. She has actually had symptoms of a viral URI for the past 3 or 4 days. She is positive for COVID. Fortunately chest x-ray is negative for pneumonia by room my read in oxygen saturations are normal. There is no signs at this point of serious bacterial infection such as OM, RPA, epiglottitis, [employer], strep pharyngitis, pneumonia, sinusitis, meningitis, bacteremia, serious bacterial infection. In this setting, we will start the patient on Paxil bit to treat for coronavirus. Initially was unclear exactly when her symptoms started but the patient her family are pretty confident that symptoms started on Sunday. That would make today day 4 of illness and she would be in the window for some benefit from Paxlovid. While on Paxil that she will have to reduce her dose of Eliquis by half from 5 mg b.i.d., down to 2.5 mg b.i.d.. Reviewed in detail with the patient and her daughter She came to the ER today not because of her cough or nasal congestion but because she is feeling short of breath and unsteady. She was found to be in atrial fibrillation with rapid ventricular response. Chest x-ray and labs are reassuring. I do not see any evidence for active heart failure at this time. She has a history of paroxysmal AFib. Sounds like she has inadvertently been off of her metoprolol for the past few months. She is given IV metoprolol here in the ER with good response. He in discussion with Cardiology they agree that it is safe to send her home and put her back on oral metoprolol to prevent more episodes of RVR. Discussed with the patient her daughter the important need for follow-up with her psychological tests sales agent. Precautions for return to the ER reviewed especially his she develops more episodes of RVR or other symptoms. I doubt acute coronary syndrome, thyroid issues, PE, dissection, drug ingestion, acute electrolyte imbalance, etc. Labs and CXR look ok. Repeat EKG looks excellent. Lab Data Labs: Lab Results 04/19/24 04/19/24 04/19/24 Range/Units 10:06 10:45 Unknown WBC 4.73 (4.50-11.00) K/uL RBC 4.71 (4.00-5.20) m/uL Hgb 12.2 (12.0-16.0) gm/dL Hct 38.1 (33.0-51.0) % MCV 81 (80-100) fL MCH 26 (26-34) pg MCHC 32 (32-36) gm/dL RDW Coeff of Mae 15.5 (11.5-15.5) % Plt Count 344 (140-440) K/uL Neut % (Auto) 62.4 (42.0-72.0) % Lymph % (Auto) 20.9 (20-44) % [place] % (Auto) 12.3 H (0.0-11.0) % Eos % (Auto) 3.6 (0.0-7.0) % Baso % (Auto) 0.8 (0.0-3.0) % Neut # (Auto) 2.95 (1.7-7.0) K/uL Lymph # (Auto) 0.99 (0.90-2.90) K/uL [place] # (Auto) 0.60 (0.00-0.90) K/UL Eos # (Auto) 0.17 (0.00-0.50) K/uL Baso # (Auto) 0.04 (0.00-0.30) K/uL Abs Immat Gran (auto) 0.00 (0.00-0.30) K/uL Imm/Tot Granulo (auto) 0.0 % Sodium 138 (135-149) mmol/L Potassium 4.0 (3.6-5.1) mmol/L Chloride 106 (96-114) mmol/L Carbon Dioxide 24 (20-32) mmol/L Anion Gap 8 (7-15) mEq/L BUN 14 (7-30) mg/dL Creatinine 0.9 (0.5-1.5) mg/dL Estimated Creat Clear 34.90 Estimated GFR 64 ml/min Glucose 114 (60-115) mg/dL Lactate 1.5 (0.5-1.9) mmol/L Calcium 8.8 (8.4-10.6) mg/dL Troponin I 0.03 (0.01-0.04) ng/mL NT-Pro-B Natriuret Pep 927 pg/mL SARS-CoV-2 (PCR) POSITIVE SARS-CoV-2 A (Negative) Influenza Type A (PCR) Negative PCR FLU A (Negative) Influenza Type B (PCR) Negative PCR FLU B (Negative) RSV (PCR) Negative PCR RSV (Negative) Imaging Data Chest x-ray: Attestation: I have reviewed the pertinent imaging results. My impression: . No acute infiltrates, possible perihilar opacities. Dr. Tineo. ECG Data Attestation: I personally reviewed and interpreted this ECG as follows: Interpretation: Atrial fibrillation with rapid ventricular response Rate: 145 DE: Not applicable QRS axis: Normal axis ST segment/T wave: Nonspecific T-wave flattening. No acute ST segment elevation or depression. T-wave inversion in lead V1 QTc: 459 Compared to EKG from 10/07/2023, atrial fib with RVR was present previously. No new ST segment elevation or depression. T-wave inversion in V1 is new. Compared to EKG from 10/12/2023. EKG on that date showed sinus bradycardia. She did have an inverted T-wave in V1. Otherwise ST segments and T-waves show no definite change today compared to then. Discharge Plan Discharge Clinical Impression: COVID-19, Atrial fibrillation with RVR Patient Disposition: Home, Self-Care Condition: Stable Instructions: A-fib (Atrial Fibrillation) (ED), COVID-19 (Coronavirus Disease 2019) (ED) Additional Instructions: Start on Paxlovid today. Paxlovid is a antiviral medication that you take twice daily for 5 days While your on Paxlovid, you should reduce your dose of Eliquis by half. Your normal dose is 5 mg twice daily. Cut the pills in half and take 2.5 mg twice daily while you are on Paxlovid and for 3 more days (half dose of Eliquis for 8 days). After that, resume your normal dose of Eliquis Start on the new medication, metoprolol. This is a blood pressure medication that will keep your heart rate low and can prevent AFib from causing rapid heart rates Come back to the ER right away if you have any problems especially more rapid heart rate, trouble breathing, chest pain, weakness, low oxygen levels, high fever, or if you have any concerns. Please call your psychological tests sales agent Sunday and make an appointment to recheck within the next 1-3 weeks Prescriptions: New metoprolol succinate 50 mg tablet extended release 24 hr 50 mg PO DAILY Qty: 30 2RF Paxlovid 300 mg (150 mg x 2)-100 mg tablets,dose pack See Rx Instructions .ROUTE .COMPLEX Qty: 30 0RF Rx Instructions: take TWO 150 mg tablets of nirmatrelvir with ONE 100 mg tablet of ritonavir twice daily for 5 days No Action metoprolol succinate 25 mg tablet extended release 24 hr 25 mg PO DAILY Qty: 30 0RF Eliquis 5 mg tablet 5 mg PO BID Qty: 60 0RF Follow Up/Referrals: Provider,Not a Local [Non-Staff] - Stand Alone Forms: [employer] Info Instructions
[2024-04-19 10:28] LABS: Chloride* 106 mmol/L (96-114); Sodium* 138 mmol/L (135-149)
[2024-04-19 10:31] LABS: Anion Gap 8 mEq/L (7-15); Carbon Dioxide* 24 mmol/L (20-32); Creatinine* 0.9 mg/dL (0.5-1.5); Estimated Glomerular Filt Rate 64 ml/min
[2024-04-19 10:32] LABS: Blood Urea Nitrogen* 14 mg/dL (7-30); Calcium* 8.8 mg/dL (8.4-10.6); Glucose* 114 mg/dL (60-115)
[2024-04-19 10:39] LABS: PCR FLU A Negative PCR FLU A (Negative); PCR FLU B Negative PCR FLU B (Negative); PCR RSV Negative PCR RSV (Negative); SARS PCR* POSITIVE SARS-CoV-2 (Negative)
[2024-04-19 10:43] LABS: Troponin I* 0.03 ng/mL (0.01-0.04)
[2024-04-19 10:45] LABS: NT Pro B Type NatriureticPept* 927 pg/mL
[2024-04-19 10:51] LABS: Lactate* 1.5 mmol/L (0.5-1.9)
--- OUTSIDE RECORDS SUMMARY | 2024-04-19 10:59 | XMS_ITS | Clinical Summary ---
Author Organization [employer] [facility] Address [place], [place] [address] Care Team Providers Care Electrical Continuity Tester Name Role Phone Pcp, No Primary Care Provider Unavailabl e Allergies Active Allergy Reactions Criticality Noted Date Comments Procaine Syncope 06/17/2013 Penicillins Hives 06/17/2013 Tolerated cephalexin in the past per patient Medications diphenhydrAMINE (BENADRYL) 25 mg tablet Take 25 mg by mouth at bedtime if needed for Sleep. Active acetaminophen (TYLENOL) 325 mg tablet Take 2 tablets by mouth every 4 hours if needed (For mild pain.). Max acetaminophen dose: 4000mg in 24 hrs. 0 11/29/19 18 Active apixaban (ELIQUIS) 5 mg tabletIndication s:New onset atrial fibrillation (HC),Paroxysmal atrial fibrillation (HC) Take 1 Tablet (5 mg) by mouth two times daily. 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 90 Tablet 3 11/19/19 24 Active metoprolol succinate (Toprol XL) 50 mg sustained-releas e tabletIndication s:New onset atrial fibrillation (HC) Take 1 Tablet (50 mg) by mouth once daily. 30 Tablet 11 12/25/19 24 Active Active Problems Problem Noted Date Diagnosed Date Obstructive sleep apnea 01/08/2018 Sleep concern 12/04/2017 Elevated BP without diagnosis of hypertension Complete heart block 11/27/2017 Syncope 11/26/2017 Encounters Date Type Department Care Team Description 03/31/2024 Telephone [facility] [address] [place] [address] Guillermo Montague MD Results (CXR ) 03/26/2024 9:30 AM CRAFT ARTIST Ancillary Procedure [facility] [address] [place] [address] 03/25/2024 9:00 AM CRAFT ARTIST Office Visit [facility] [address] [place] [address] Guillermo Montague MD Follow Up (3 month Paroxysmal atrial fibrillation /Pace maker /11/30/23 ECHO ) 03/25/2024 Travel from Last 3 Months Immunizations Name Administration Dates Next Due COVID-19 vaccine (Pfizer-Bio NTech 30mcg/0.3mL) 12YO+ BIVALENT PF, MDV 01/27/2022 COVID-19 vaccine (Pfizer-Bio NTech 30mcg/0.3mL) 12YO+ MADAI-SUCROSE PF, MDV 08/31/2021 COVID-19 vaccine (Pfizer-Bio NTech 30mcg/0.3mL) PF, MDV 01/31/2021,06/15/2020,05/25/2020 Social History Tobacco Use Types Packs/Day Years Used Date Smoking Tobacco: Never Smokeless Tobacco: Never Tobacco Cessation:Counseling Given: Yes Alcohol Use Standard Drinks/Week Comments No 0 (1 standard drink = 0.6 oz pur e alcohol) [facility] Utilities Answer Date Recorded Do you have trouble paying f or utilities (for example, heat, electricity, water, phone)? Yes 10/16/2023 PHQ-2 Answer Date Recorded PHQ-2 Score 0 06/11/2018 Social Connections Answer Date Recorded Do you often feel lonely or isolated from those around you? 0 10/16/2023 Financial Resource Strain Answer Date R ecorded Difficulty of Paying Living Expenses 3 10/16/2023 Difficulty of Paying Living Expenses Not on file 10/16/2023 Food Insecurity Answer Date Recorded Do you worry your food will run out before you are able to buy more? 1 10/16/2023 Transportation Needs Answer Date Record ed Does lack of transportation keep you from medica l appointments? 1 10/16/2023 Does lack of transportation keep you from work, meetings or getting things that you need? 1 10/16/2023 Housing Stability Answer Date Recorded What is your housing situation today? 1 10/16/2023 Comments No Sex and Gender Information Value Date Recorded Sex Assigned at Not on file Legal Sex Female 3:50 PM CDT Gender Identity Not on file Sexual Orientation Not on file Obstetrics History Last Filed Vital Signs Vital Sign Reading Time Taken Comments Blood Pressure 159/89 03/25/2024 8:56 AM CRAFT ARTIST Pulse 68 03/25/2024 8:56 AM CRAFT ARTIST Temperature 36.6 C (97.8 F) 05/22/2021 11:13 AM CRAFT ARTIST Respiratory Rate 20 05/22/2021 11:13 AM CRAFT ARTIST Oxygen Saturation 97% 03/25/2024 8:56 AM CRAFT ARTIST Inhaled Oxygen Concentration - - Weight 93.4 kg (206 lb) 03/25/2024 8:56 AM CRAFT ARTIST Height 157.5 cm (5' 2) 01/03/2024 9:18 AM CDT Body Mass Index 37.68 01/03/2024 9:18 AM CDT Plan of Treatment Upcoming Encounters Date Type Department Care Team (Late st Contact Info) Description 05/16/2024 Cardiac Device Check [facility] [phone] Health Maintenance Due Date Last Done Comments Tdap 1953 Pneumococcal series for age 50+ (1 of 2 - PCV) 1961 Tetanus booster 1962 Zoster (shingles) series for age 50+ (1 of 2) 1992 DEXA/DXA scan for age 65+ 2007 Medicare Wellness for age 65+ 2007 RSV vaccine for adults or (1 - 1-dose 75+ series) 2017 Depression screening for age 12+ 12/04/2018 12/05/19 18 COVID-19 vaccine series ( season) 2023 01/27/2022, 08/31/2021, 01/31/2021, Additional history exists Influenza for age 65+ 12/09/2023 BMI (ht and wt on same day) for age 18+ 01/02/2025 01/03/2024, 10/29/2023, 12/11/2017, Additional history exists Procedures Procedure Name Priority Date/Time Associated Diagnosis Comments XR CHEST 2 VIEWS PA AND LATERAL Routine 03/26/2024 9:36 AM CRAFT ARTIST Paroxysmal atrial fibrillation (HC) from Last 3 Months Results * XR CHEST 2 VIEWS PA AND LATERAL (03/26/2024 9:36 AM CRAFT ARTIST) Anatomical Region Laterality Modality CHEST, THORAX, Lung, HEART Compu enrike Radiography 03/26/2024 12:5 0 PM CRAFT ARTIST Impressions 03/26/2024 12:50 PM CRAFT ARTIST No acute findings. No CHF. Dictated by Fabricio Duff MD @ 03/26/2024 12:50:36 PM (Electronically Signed) Narrative 03/26/2024 12:50 PM CRAFT ARTIST For Patients: As a result of the Cures Act, medical imaging exams and procedure reports are released immediately into your electronic medical record. You may view this report before your referring provider. If you have questions, please contact your health care provider. INDICATION: Paroxysmal atrial fibrillation TECHNIQUE: Chest 2 views COMPARISON: 11/28/2017 FINDINGS: Cardiac silhouette is similar. Pacer wires are present. Bridging osteophyte formation throughout the thoracic spine with preservation of the disc spaces consistent with diffuse idiopathic skeletal hyperostosis. Postop changes to the right upper quadrant. No infiltrate or edema. Procedure Note Fabricio Duff MD - 03/26/2024 For Patients: As a result of the Cures Act, medical imagingexams and procedure reports are released immediately into your electronicmedical record. You may view this report before your referring provider.If you have questions, please contact your health care provider. INDICATION: Paroxysmal atrial fibrillation TECHNIQUE: Chest 2 views COMPARISON: 11/28/2017 FINDINGS: Cardiac silhouette is similar. Pacer wires are present. Bridgingosteophyte formation throughout the thoracic spine with preservation ofthe disc spaces consistent with diffuse idiopathic skeletal hyperostosis.Postop changes to the right upper quadrant. No infiltrate or edema. IMPRESSION: No acute findings. No CHF. Dictated by Fabricio Duff MD @ 03/26/2024 12:50:36 PM (Electronically Signed) Guillermo Montague MD GENERAL IMAGING Final Result from Last 3 Months Insurance MEDICARE PART A HB ONLY [facility] Advance Directives * Full Code (Latest Code Status on File) Date Activated Date Inactivated Comments 11/26/2017 5:35 PM 11/28/2017 1:02 PM Care Teams Electrical Continuity Tester Relationship Specialty Start Date End Date Pcp, No . PCP - General 06/17/13
[2024-04-19] MEDS: 0.9 % SODIUM CHLORIDE 500 ML 500 ML IV (11:04)
[2024-04-19] MEDS: METOPROLOL TARTRATE 1 MG/ML inj 5 MG IVP (11:04)
--- NOTE | 2024-04-19 11:49 | CRLHL7_ITS ---
For Patients: As a result of the Century Cures Act, medical imaging exams and procedure reports are released immediately into your electronic medical record. You may view this report before your referring provider. If you have questions, please contact your health care provider. INDICATION: COVID, cough, weakness TECHNIQUE: 1 view chest radiograph COMPARISON: CT chest 11/26/2017 FINDINGS: Devices: None. Lung volumes are good. Mild fine interstitial opacities without focal consolidation. No pulmonary edema. No pleural effusion. No pneumothorax. Heart size is normal. Left subclavian dual lead transvenous pacemaker with leads in the right atrial and right ventricular positions. Osseous structures appear normal. IMPRESSION: Mild fine interstitial opacities are often seen with viral or atypical pneumonia. Dictated by Anai Win MD @ 04/22/2024 9:42:00 AM (Electronically Signed)
== END 2024-04-19 13:42 | disposition home or self-care (01) ==
PROVIDERS: Emergency Provider Emergency Medicine; PCP Physician Assistant
DX: U07.1 COVID-19 (principal); I48.20 Chronic atrial fibrillation, unspecified
CPT/HCPCS: 36415; 71045; 80048; 83605; 83880; 84484; 85025; 87040; 87631; 99284; J7030

== ENCOUNTER 2024-06-16 17:26 | Emergency (ER) | payer MEDICARE, SELFPAY ==
[2024-06-16 17:36] VITALS: BP 184/78; PULSE 84; RESP 22; TEMP 36.6; O2SAT 97; BMI 38.3
[2024-06-16 18:22] LABS: PCR FLU A Negative PCR FLU A (Negative); PCR FLU B Negative PCR FLU B (Negative); PCR RSV POSITIVE PCR RSV (Negative); SARS PCR* Negative SARS-CoV-2 (Negative)
--- NOTE | 2024-06-16 18:50 | ED.GENADULT ---
HPI - General Adult General Chief complaint: Cough Stated complaint: Coughing Time Seen by Provider: 06/16/24 18:10 History of Present Illness HPI narrative: This 84-year-old female comes in reporting a cough that began last evening. She arrives here with normal vital signs. She does report persistent coughing through the night and better this morning but then again worse prior to arrival here. She does not report any fevers. She does not have any shortness of breath. Related Data Previous Rx's ?Medication ?Instructions ?Recorded apixaban 5 mg tablet (Eliquis) 5 mg PO BID #60 tabs 10/06/23 metoprolol succinate 25 mg 25 mg PO DAILY #30 tabs 10/06/23 tablet,extended release 24 hr metoprolol succinate 50 mg 50 mg PO DAILY #30 tabs 04/19/24 tablet,extended release 24 hr nirmatrelvir 300 mg (150 mg See Rx Instructions PO .COMPLEX 04/19/24 x2)-ritonavir 100 mg tablet,dose #30 ea pack (Paxlovid) acetaminophen 300 mg-codeine 30 mg 1 tab PO Q6H PRN pain #15 tabs 06/16/24 tablet methylprednisolone 4 mg tablets in See Rx Instructions PO .COMPLEX 06/16/24 a dose pack (Medrol (Kishan)) #21 ea Allergies Allergy/AdvReac Type Severity Reaction Status Date / Time Penicillins Allergy Verified 06/16/24 17:32 novacaine Allergy Intermediate Uncoded 04/19/24 09:34 Review of Systems Status of ROS: Reports: 10 or more systems reviewed and unremarkable except as noted in History and below Narrative: Constitutional: No fevers, no weight gain or loss. Eyes: No discharge. No vision changes. HENT: No congestion, no sore throat, no ear pain. Cardiovascular: No chest pain, no palpitations. Respiratory: No shortness of breath, no wheezes. Frequent coughing. Gastrointestinal: No abdominal pain, no vomiting, no diarrhea. Genitourinary: No dysuria, no hematuria. Musculoskeletal: Normal range of motion. Skin: No rashes, no pruritis. Neurological: No dizziness, weakness, sensory change, speech change. Endo/Heme/Allergies: No bruising or bleeding. No polydipsia. Pysch: no suicidality, no anxiety, no insomnia. All other systems reviewed and are negative. PFSH PFS Medical History Atrial fibrillation with RVR ?I48.91 - Unspecified atrial fibrillation (ICD-10) Surgical History Status post placement of cardiac pacemaker ?Z95.0 - Presence of cardiac pacemaker (ICD-10) Social History Smoking Status: Never smoker Do you use any of these nicotine containing products: None How often do you have a drink containing alcohol: never How often do you have six or more drinks on one occasion: Never AUDIT-C Alcohol total score: 0 Non-prescribed substance use: denies use service: No Exam Narrative: Exam Narrative: Constitutional: Well-developed, well-nourished, no acute distress. HEENT: Normocephalic, atraumatic. Neck: Normal range of motion. Nontender. Supple. Heart: Regular. No murmurs. Normal rate. Intact distal pulses. Lungs: Lungs are clear bilaterally except for 1 small peep of a wheeze on each side during inspiration. Abdomen: Normal bowel sounds. Nontender. No rebound tenderness. Genitalia: Deferred. Back: No midline tenderness. Normal range of motion. Extremities: Normal range of motion. No injury. Skin: Intact. No rash. Warm. No erythema or pallor. Neurologic: No altered sensation. No weakness. Alert and oriented. Psychiatric: No suicidality. No anxiety or depression. No insomnia. Nursing notes and vitals signs are reviewed. Const: Vital Signs, click to edit/add: Vital Signs - 24 hr 06/16/24 17:36 Temperature 97.8 F Pulse Rate [Pulse Oximeter] 84 Respiratory Rate 22 Blood Pressure [Ri ght Upper Arm] 184/78 H Pulse Oximetry 97 Oxygen Delivery Me thod Room Air Course Vital Signs Vital signs: Initial Vital Signs Temperature 97.8 F 06/16/24 17:36 Temperature Source Temporal Artery Scan 06/16/24 17:36 Pulse Rate 84 06/16/24 17:36 Respiratory Rate 22 06/16/24 17:36 Blood Pressure 184/78 H 06/16/24 17:36 Blood Pressure Mean 113 H 06/16/24 17:36 Pulse Oximetry 97 06/16/24 17:36 Oxygen Delivery Method Room Air 06/16/24 17:36 Vital Signs Temperature 97.8 F 06/16/24 17:36 Pulse Rate 84 06/16/24 17:36 Respiratory Rate 22 06/16/24 17:36 Blood Pressure 184/78 H 06/16/24 17:36 Pulse Oximetry 97 06/16/24 17:36 Oxygen Delivery Method Room Air 06/16/24 17:36 Temperature 97.8 F 06/16/24 17:36 Pulse Rate 84 06/16/24 17:36 Respiratory Rate 22 06/16/24 17:36 Blood Pressure 184/78 H 06/16/24 17:36 Pulse Oximetry 97 06/16/24 17:36 Oxygen Delivery Method Room Air 06/16/24 17:36 Medical Decision Making MDM Narrative Medical decision making narrative: This patient comes in reporting persistent cough. She has normal oximetry and no sign of respiratory distress or use of accessory muscles for breathing. Nasal pharyngeal swab returns positive for RSV. The patient did receive a prescription for Medrol Dosepak and Tylenol 3. I recommended also using [id number] cough medicines as needed and directed. I advised her to return if becoming more short of breath. Lab Data Labs: Lab Results 06/16/24 Range/Units 17:35 SARS-CoV-2 (PCR) Negative SARS-CoV-2 (Negative) Influenza Type A (PCR) Negative PCR FLU A (Negative) Influenza Type B (PCR) Negative PCR FLU B (Negative) RSV (PCR) POSITIVE PCR RSV A (Negative) Discharge Plan Discharge Clinical Impression: RSV infection Patient Disposition: Home, Self-Care Condition: Stable Additional Instructions: Take medication as prescribed. Use [id number] cough medicines also as needed and directed. Follow up with MD return if worsening symptoms occur. Prescriptions: New acetaminophen-codeine 300-30 mg tablet 1 tab PO Q6H PRN (Reason: pain) Qty: 15 0RF methylprednisolone [Medrol (Kishan)] 4 mg tablets,dose pack See Rx Instructions .ROUTE .COMPLEX Qty: 21 0RF Rx Instructions: orally per package directions No Action metoprolol succinate 50 mg tablet extended release 24 hr 50 mg PO DAILY Qty: 30 2RF Paxlovid 300 mg (150 mg x 2)-100 mg tablets,dose pack See Rx Instructions .ROUTE .COMPLEX Qty: 30 0RF Rx Instructions: take TWO 150 mg tablets of nirmatrelvir with ONE 100 mg tablet of ritonavir twice daily for 5 days metoprolol succinate 25 mg tablet extended release 24 hr 25 mg PO DAILY Qty: 30 0RF Eliquis 5 mg tablet 5 mg PO BID Qty: 60 0RF Follow Up/Referrals: Priscila Clark PA-C [Primary Care Provider] - Stand Alone Forms: [facility] Info Instructions
--- OUTSIDE RECORDS SUMMARY | 2024-06-16 19:02 | XMS_ITS | Clinical Summary ---
Author Organization [email or web address] [facility] Address [address] [place] [address] Care Team Providers Care Manager Research Development Name Role Phone Pcp, No Primary Care [...] Encounters Date Type Department Care Team Description 04/19/2024 Orders Only [facility] Scanner 1 scan: (1-Ord) [place] [facility], XR CHEST 1V PORTABLE, 04/19/2024 03/31/2024 Telephone [facility] [address] [place] [address] Guillermo Montague MD Results (CXR ) 03/26/2024 9:30 AM VOCATIONAL NURSE Ancillary Procedure [facility] [address] [place] [address] 03/25/2024 9:00 AM VOCATIONAL NURSE Office Visit [facility] [address] [place] [id number] Guillermo Montague MD Follow Up (3 month Paroxysmal atrial fibrillation /Pace maker /11/30/23 ECHO ) 03/25/2024 Travel from Last 3 Months Immunizations Immunization Administration Dates Next Due COVID-19 vaccine (Pfizer-Bio [...] drink = 0.6 oz pur e alcohol) PHQ-2 Answer Date Recorded PHQ-2 Score 0 [...] is your housing situation today? 1 10/16/2023 Utilities Answer Date Recorded Do you have trouble paying f or utilities (for example, heat, electricity, water, phone)? 1 10/16/2023 Comments No Sex and Gender Information Value Date Recorded Sex Assigned at Not on file Legal Sex Female 3:50 PM CDT Gender Identity Not on file Sexual Orientation Not on file Obstetrics History Last Filed Vital Signs Vital Sign Reading Time Taken Comments Blood Pressure 159/89 03/25/2024 8:56 AM VOCATIONAL NURSE Pulse 68 03/25/2024 8:56 AM VOCATIONAL NURSE Temperature 36.6 C (97.8 F) 05/22/2021 11:13 AM VOCATIONAL NURSE Respiratory Rate 20 05/22/2021 11:13 AM VOCATIONAL NURSE Oxygen Saturation 97% 03/25/2024 8:56 AM VOCATIONAL NURSE Inhaled Oxygen Concentration - - Weight 93.4 kg (206 lb) 03/25/2024 8:56 AM VOCATIONAL NURSE Height 157.5 cm (5' 2) 01/03/2024 9:18 AM CDT Body Mass Index 37.68 01/03/2024 9:18 AM CDT Plan of Treatment Upcoming Encounters Date Type Department Care Team (Late st Contact Info) Description 09/15/2024 [phone] Health Maintenance Due Date Last Done Comments [...] screening for age 12+ 12/04/2018 12/05/19 18 (IA) Influenza for age 65+ 12/09/2023 COVID-19 vaccine series ( season) 2023 01/27/2022, 08/31/2021, 01/31/2021, Additional history exists BMI (ht and wt on same day) for age 18+ 01/02/2025 01/03/2024, 10/29/2023, 12/11/2017, Additional history exists Procedures Procedure Name Priority Date/Time Associated Diagnosis Comments SCAN-RADIOLOGY REPORT 04/19/2024 12:00 AM VOCATIONAL NURSE XR CHEST 2 VIEWS PA AND LATERAL Routine 03/26/2024 9:36 AM VOCATIONAL NURSE Paroxysmal atrial fibrillation (HC) from Last 3 Months Results * SCAN-RADIOLOGY REPORT (04/19/2024 12:00 AM VOCATIONAL NURSE) Anatomical Region Laterality Modality Other us Scanner OTHER Final Result * XR CHEST 2 VIEWS PA AND LATERAL (03/26/2024 9:36 AM VOCATIONAL NURSE) Anatomical Region Laterality Modality CHEST, THORAX, Lung, HEART Compu enrike Radiography 03/26/2024 12:5 0 PM VOCATIONAL NURSE Impressions 03/26/2024 12:50 PM VOCATIONAL NURSE No acute findings. No CHF. Dictated by Fabricio Duff MD @ 03/26/2024 12:50:36 PM (Electronically Signed) Narrative 03/26/2024 12:50 PM VOCATIONAL NURSE For Patients: As a result of the [...] MD @ 03/26/2024 12:50:36 PM (Electronically Signed) us Guillermo Montague MD GENERAL IMAGING Final Result from Last 3 Months Insurance MEDICARE PART A HB ONLY [facility] Advance Directives * Full Code (Latest Code Status on File) Date Activated Date Inactivated Comments 11/26/2017 5:35 PM 11/28/2017 1:02 PM Care Teams Manager Research Development Relationship Specialty Start Date End Date Pcp, No . PCP - General 06/17/13
== END 2024-06-16 19:09 | disposition home or self-care (01) ==
LOC: ED 19:00
PROVIDERS: Family Medicine; Emergency Provider Emergency Medicine Emergency Medical Services; PCP Physician Assistant
DX: R05.9 Cough, unspecified (principal); B97.4 Respiratory syncytial virus as the cause of diseases classified elsewhere
CPT/HCPCS: 87631; 99283; 99284

== ENCOUNTER 2025-01-07 08:24 | Emergency (ER) | payer MEDICARE, SELFPAY ==
--- OUTSIDE RECORDS SUMMARY | 2025-01-07 08:27 | XMS_ITS | Clinical Summary ---
Author Organization [facility] Address [address] [place] [address] Care Team Providers Care Vocational Adviser Name Role Phone Priscila Clark Primary Care Provider [phone] Allergies Active Allergy Reactions Criticality Noted Date Comments Adhesive Tape-Silicones Hives 10/01/2024 Procaine Syncope 06/17/2013 Penicillins Hives 06/17/2013 Tolerated cephalexin in the past per patient Medications diphenhydrAMINE (BENADRYL) 25 mg tablet Take 25 mg by mouth at bedtime if needed for Sleep. Active acetaminophen (TYLENOL) 325 mg tablet Take 2 tablets by mouth every 4 hours if needed (For mild pain.). Max acetaminophen dose: 4000mg in 24 hrs. 0 11/29/19 18 Active metoprolol succinate (Toprol XL) 50 mg sustained-release tabletIndications :New onset atrial fibrillation (HC) Take 1 Tablet (50 mg) by mouth once daily. 30 Tablet 11 12/25/19 24 Active gabapentin 100 mg capsuleIndication s:Chronic right hip pain TAKE 1 CAPSULE (100 MG) BY MOUTH TWO TIMES DAILY. 180 Capsule 1 10/14/19 25 Active Eliquis 5 mg tabletIndications :Paroxysmal atrial fibrillation (HC) TAKE 1 TABLET BY MOUTH TWO TIMES DAILY. 180 Tablet 3 10/21/19 25 Active acetaminophen (TYLENOL EXTRA STRGTH) 500 mg tabletIndications :S/P total right hip arthroplasty Take 2 Tablets (1,000 mg) by mouth every 6 hours. Max acetaminophen dose: 4000mg in 24 hrs. 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 30 Tablet 10/12/19 25 025 Discontin ued(Reord er (E-cancel not sent)) cefadroxil (DURICEF) 500 mg capsuleIndication s:S/P total right hip arthroplasty Take 1 Capsule (500 mg) by mouth two times daily for 7 days. For infection prevention. 14 Capsule 5 3:00 PM CDT 11/29/19 25 025 Discontin ued(*Med complete/ Regimen complete/ Level of care change) acetaminophen (TYLENOL EXTRA STRGTH) 500 mg tabletIndications :S/P total right hip arthroplasty Take 2 Tablets (1,000 mg) by mouth every 6 hours. Max acetaminophen dose: 4000mg in 24 hrs. 200 Tablet 5 3:00 PM CDT 11/29/19 25 025 Discontin ued(*Med complete/ Regimen complete/ Level of care change) oxyCODONE (ROXICODONE) 5 mg immediate release tabletIndications :S/P total right hip arthroplasty Take 1 Tablet (5 mg) by mouth every 4 hours if needed for Pain. Take for severe post-operative pain (7-10/10). Do not take with Tramadol. 20 Tablet 5 3:00 PM CDT 11/29/19 25 025 Discontin ued(*Med complete/ Regimen complete/ Level of care change) sennosides-docusa te (Senokot-S) (8.6-50 mg) tabletIndications :S/P total right hip arthroplasty Take 1-3 Tablets by mouth 2 times daily if needed for Constipation. Take as needed for constipation. Hold for loose stool. Start with taking 1 tablet 2 times a day. If no bowel movement, increase to 2 tablets 2 times a day. If no bowel movement again, increase to 3 tablets 2 times a day. If greater than 2 bowel movements in 24 hours at any point, reduce to 1 tablet 2 times a day. 100 Tablet 5 3:00 PM CDT 11/29/19 25 025 Discontin ued(*Med complete/ Regimen complete/ Level of care change) traMADoL (ULTRAM) 50 mg tabletIndications :S/P total right hip arthroplasty Take 1 Tablet (50 mg) by mouth every 6 hours if needed for Pain. Take for moderate post-operative pain (3-6/10). Do not take with Oxycodone. 30 Tablet 5 3:00 PM CDT 11/29/19 25 025 Discontin ued(*Med complete/ Regimen complete/ Level of care change) ondansetron (ZOFRAN ODT) 4 mg disintegrating tabletIndications :S/P total right hip arthroplasty Place 1 Tablet (4 mg) on the tongue every 8 hours if needed for Nausea/Vomiting. 20 Tablet 5 3:00 PM CDT 11/29/19 25 025 Discontin ued(*Med complete/ Regimen complete/ Level of care change) ondansetron (ZOFRAN ODT) 4 mg disintegrating tabletIndications :S/P total right hip arthroplasty Place 1 Tablet (4 mg) on the tongue every 8 hours if needed for Nausea/Vomiting. 10 Tablet 11/30/19 25 025 Discontin ued(*Med complete/ Regimen complete/ Level of care change) oxyCODONE (ROXICODONE) 5 mg immediate release tabletIndications :S/P total right hip arthroplasty Take 1-2 Tablets (5-10 mg) by mouth every 4 hours if needed for Pain (For moderate pain. Hold dose if sedated.). 20 Tablet 11/30/19 25 025 Discontin ued(*Med complete/ Regimen complete/ Level of care change) sennosides-docusa te (SENOKOT S) (8.6-50 mg) tabletIndications :S/P total right hip arthroplasty Take 1-3 Tablets by mouth two times daily. 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 90 Tablet 12/11/19 25 025 Discontin ued(Reord er (E-cancel not sent)) Active Problems Problem Noted Date Diagnosed Date Unilateral primary osteoarthritis, right hip Elevated blood pressure read ing without diagnosis of hypertension 09/22/2024 Microcytic anemia 09/22/2024 Pacemaker 09/22/2024 Primary osteoarthritis of right hip 09/22/2024 Paroxysmal atrial fibrillation 08/12/2024 Obstructive sleep apnea 01/08/2018 Sleep concern 12/04/2017 Elevated BP without diagnosis of hypertension Complete heart block 11/27/2017 Syncope 11/26/2017 Encounters Date Type Department Care Team Description 01/07/2025 Nurse Triage [facility] [[email or web address] [address] [place] [address] Priscila Clark PA Derm Problem 12/12/2024 9:00 AM CDT Home Care Visit [facility] [address] [place] [address] Fabricio Ya, PT PT - OASIS DISCHARGE 12/10/2024 10:30 AM CDT Office Visit [facility] [address] [phone] Kim Doherty PA Surgical Followup (2 wk s/p RTHA) 12/10/2024 Travel 12/09/2024 9:00 AM CDT Home Care Visit [facility] [address] [place] [address] Fabricio Ya, PT PT - HOME VISIT 12/09/2024 Refill [facility] [[email or web address] [address] [place] [address] Priscila Clark PA Refill Request; LEVOTHYROXINE 12/05/2024 9:00 AM CDT Home Care Visit [facility] [address] [place] [address] Fabricio Ya, PT PT - HOME VISIT 12/05/2024 Travel 12/02/2024 9:00 AM CDT Home Care Visit [facility] [address] [place] [address] Fabricio Ya, PT PT - OASIS START OF CARE 12/02/2024 Plan of Care Documentation [facility] [address] [place] [address] 12/02/2024 Telephone [facility] [address] [place] [address] Fabricio Ya, PT Home Care 11/28/2024 11:23 AM CDT Anesthesia Event [facility] [address] [place] [address] Susan Aj CRNA McArdle, Tanner James, MD 11/28/2024 10:45 AM CDT - 11/28/2024 1:49 PM CDT Surgery [facility] [address] [place] [address] Curly Toure, RIGHT ANTERIOR TOTAL HIP ARTHROPLASTY 11/28/2024 8:18 AM CDT - 11/29/2024 2:10 PM CDT Hospital Encounter [facility] [address] [place] [address] Curly Toure DO Primary osteoarthritis of right hip (Primary Dx); S/P total right hip arthroplasty Discharge Disposition: Home Self Care 11/28/2024 Telephone [facility] [address] [facility] [address] [place] [address] Curly Toure DO Error-please disregard 11/27/2024 Travel 11/27/2024 Telephone [facility] [address] [facility] [address] [place] [address] Jose Braswell RN Device Check (PACEMAKER EVALUATION ) 11/27/2024 Telephone [facility] [address] [facility] [address] [place] [address] Curly Toure, SURGERY FOR TUESDAY 11/28 (URGENT/) 11/26/2024 Orders Only [facility] [address] [place] [address] Curly Toure, <No scans attached> 11/21/2024 Telephone [facility] [address] [facility] [address] [place] [address] Curly Toure, Surgery Information 11/17/2024 Telephone [facility] [address] [facility] [address] [place] [address] Curly Toure, Questions 11/11/2024 10:10 AM CDT Office Visit [facility] [[email or web address] [address] [place] [address] Priscila Clark PA Preoperative Exam ([facility]-Dr. Toure-right hip replacement-11/28/24) 11/11/2024 Travel 10/30/2024 Refill [facility] [[email or web address] [address] [place] [address] Priscila Clark PA Refill Request (Cephalexin) 10/16/2024 Refill [facility] [[email or web address] [address] [place] [address] Priscila Clark PA Refill Request (Cephalexin, Eliquis) 10/09/2024 Refill [facility] [[email or web address] [address] [place] [address] Priscila Clark PA Refill Request (Gabapentin, Levothyroxine) 10/08/2024 1:00 PM CDT Nurse/Clinic Staff Only [facility] [[email or web address] [address] [place] [address] Infusion Therapy (feraheme) 10/08/2024 Travel from Last 3 Months Immunizations Immunization Administration Dates Next Due COVID-19 vaccine (Pfizer-Bio NTech 30mcg/0.3mL) 12YO+ BIVALENT PF, MDV 01/27/2022 COVID-19 vaccine (Lifecrowd-Bio NTech 30mcg/0.3mL) 12YO+ MADAI-SUCROSE PF, MDV 08/31/2021 COVID-19 vaccine (Lifecrowd-Bio NTech 30mcg/0.3mL) PF, MDV 01/31/2021,06/15/2020,05/25/2020 Social History [...] or isolated from those around you? 0 11/11/2024 Financial Resource Strain Answer Date R ecorded Difficulty of Paying Living Expenses 3 11/11/2024 Difficulty of Paying Living Expenses Not on file 11/11/2024 Food Insecurity Answer Date Recorded Do you worry your food will run out before you are able to buy more? 1 11/11/2024 Transportation Needs Answer Date Record ed Does lack of transportation keep you from medica l appointments? 1 11/11/2024 Does lack of transportation keep you from work, meetings or getting things that you need? 1 11/11/2024 Housing Stability Answer Date Recorded What is your housing situation today? 1 11/11/2024 Utilities Answer Date Recorded Do you have trouble paying f or utilities (for example, heat, electricity, water, phone)? 1 11/11/2024 Comments No Sex and Gender Information Value Date Recorded Sex Assigned at Not on file Legal Sex Female 3:50 PM CDT Gender Identity Not on file Sexual Orientation Not on file Obstetrics History Last Filed Vital Signs Vital Sign Reading Time Taken Comments Blood Pressure 128/72 12/12/2024 9:34 AM CDT Pulse 66 12/12/2024 9:34 AM CDT Temperature 36.6 C (97.8 F) 12/12/2024 9:34 AM CDT Respiratory Rate 16 12/12/2024 9:34 AM CDT Oxygen Saturation 99% 12/12/2024 9:34 AM CDT Inhaled Oxygen Concentration - - Weight 95.9 kg (211 lb 6.4 oz) 12/02/2024 9:51 A M CDT Height 157.5 cm (5' 2) 11/28/2024 10:17 AM CDT Body Mass Index 38.67 11/28/2024 10:17 AM CDT Plan of Treatment Upcoming Encounters Date Type Department Care Team (Late st Contact Info) Description 01/27/2025 10:30 AM CDT Office Visit [facility] [[email or web address] [address] [place] [address] [place] [address] [place], [place] [id number] Health Maintenance Due Date Last Done Comments Tetanus booster 1953 Pneumococcal series for age 50+ (1 of 2 - PCV) 1961 Zoster (shingles) series for age 50+ (1 of 2) 1992 DEXA/DXA scan for age 65+ 2007 Medicare Wellness for age 65+ 2007 RSV vaccine for adults or (1 - 1-dose 75+ series) 2017 Depression screening for age 12+ 12/04/2018 12/04/2017 COVID-19 vaccine series (2024- season) 2024 01/27/2022, 08/31/2021, 01/31/2021, Additional history exists Influenza Vaccine (#1) 2024 BMI (ht and wt on same day) for age 18+ 11/11/2025 11/11/2024, 09/19/2024, 01/03/2024, Additional history exists Hepatitis B series for 19+ Aged Out N o longer eligible based on patient's age to complete this topic Medical Devices Implanted Type Area Skein [employer] Drier Device Identifier Shelf Expiration Date Model / Serial / Lot Insert Sz D 36mm 0 Deg Trident X3 - [id number] Implanted:Qty: 1 on 11/28/2024 by Curly Toure DO at [facility] Right: Hip [employer] 10/29/2029 723-00-36D / / [id number] Shell Hip 48d Trident Ii Clusterhole Tritanium - [id number] Implanted:Qty: 1 on 11/28/2024 by Curly Toure DO at [facility] Right: Hip [employer] 06/30/2029 702-04-48D / / [id number] Screw Hip 6.5x30mm [employer] Low Profile Hex - [id number] Implanted:Qty: 1 on 11/28/2024 by Curly Toure DO at [facility] Right: Hip [employer] 08/28/2029 [id number] / / [id number] Stem Fem 103mm Sz 4 Insignia High Offset Collared - [id number] Implanted:Qty: 1 on 11/28/2024 by Curly Toure DO at [facility] Right: Hip [employer] 10/14/2029 [id number] / / [id number] Head Hip V40 Od36mm +2.5 Biol[employer] Delta Alumina Cer - [id number] Implanted:Qty: 1 on 11/28/2024 by Curly Toure DO at [facility] Right: Hip [employer] 08/06/2029 [id number] / / [id number] Procedures Procedure Name Priority Date/Time Associated Diagnosis Comments GLUCOSE METER Timed 11/29/2024 6:56 AM CDT HEMOGLOBIN Early AM 11/29/2024 5:56 AM CDT S/P total right hip arthroplasty XR PELVIS 1 VIEW PORTABLE YONY 11/28/2024 9:48 PM CDT S/P total right hip arthroplasty GLUCOSE METER Timed 11/28/2024 9:44 PM CDT GLUCOSE METER Timed 11/28/2024 6:02 PM CDT XR C-ARM EQUAL OR GREATER 2 HR Routine 11/28/2024 1:14 PM CDT Primary osteoarthritis of right hip XR HIP 1 VIEW W PELVIS RIGHT PORTABLE Routine 11/28/2024 1:13 PM CDT Primary osteoarthritis of right hip SPINAL BLOCK Routine 11/28/2024 12:07 PM CDT ARTHROPLASTY HIP ANTERIOR APPROACH Tier 4: > 90 days 11/28/2024 11:07 AM CDT Primary osteoarthritis of right hip Case Notes SPINALPERIARTICULAR INJECTIONSUPINE ON HANA TABLEC-ARMSTRYKER ACCOLADE 2/INSIGNIA BROACH SET/INHOUSEBOP TYPE & SCREEN Today 11/28/2024 8:54 AM CDT SCAN-CARDIAC STRIP 11/28/2024 12:00 AM CDT COMP METABOLIC PANEL Routine 11/11/2024 10:54 AM CDT Pre-op exam CBC WITH AUTO DIFFERENTIAL Routine 11/11/2024 10:54 AM CDT Iron deficiency anemia, unspecified iron deficiency anemia type APTT Routine 11/11/2024 10:54 AM CDT Encounter for medical screening examination FERRITIN Routine 11/11/2024 10:54 AM CDT Iron deficiency anemia, unspecified iron deficiency anemia type IRON PLUS IRON BINDING CAP Routine 11/11/2024 10:54 AM CDT Iron deficiency anemia, unspecified iron deficiency anemia type ABORH TYPE Routine 11/11/2024 10:53 AM CDT Encounter for medical screening examination PROTIME-INR Routine 11/11/2024 10:53 AM CDT Encounter for medical screening examination from Last 3 Months Results * (ABNORMAL) GLUCOSE METER (11/29/2024 6:56 AM CDT) Only the most recent of3 resultswithin the time period is included. [facility] Signature GLUCOSE METER 126(H) 65 - 100 mg/dL 11/29/2024 6:57 AM CDT [facility] Blood BLOOD SPECIMEN / Unknown 11/29/2024 6:56 AM CDT 11/29/2024 6:57 AM CDT Curly Toure DO CHEMISTRY Final Resu lt Performing Organization Address [facility] de Phone Number [facility] [address] [place] [address], [place] * (ABNORMAL) Hemoglobin ??? Daily x 1 (11/29/2024 5:56 AM CDT) HEMOGLOBIN 11.5(L) 12.0 - 16.0 g/dL 11/29/2024 6:47 AM CDT [facility] MCV 86 80 - 100 fL 11/29/2024 6:47 AM CDT [facility] Blood BLOOD SPECIMEN / Unknown Diversion Device / Unknown 11/29/2024 5:56 AM CDT 11/29/2024 6:35 AM CDT Narrative [facility] - 11/29/2024 6:47 AM CDT Call surgeon if hemoglobin less than 8. Kim [facility] Final R esult Performing Organization Address [facility] Co de Phone Number [facility] [address] [place] [address], [place] * XR AP PELVIS 1 VIEW PORTABLE (11/28/2024 9:48 PM CDT) Anatomical Region Laterality Modality Pelvis Digital Radiogra phy 11/29/2024 7:52 AM CDT Narrative 11/29/2024 7:52 AM CDT For Patients: As a result of the 21st Century Cures Act, medical imaging exams and procedure reports are released immediately into your electronic medical record. You may view this report before your referring provider. If you have questions, please contact your health care provider. Indication: Hemiarthroplasty Technique: Pelvis 1 view. Comparison: Pelvis radiograph 08/27/2024 Findings: Bones: Right total hip arthroplasty. Hardware is intact. No acute fracture. Joint spaces: Mild osteoarthritis of the left hip.. Soft tissues: Soft tissue swelling and subcutaneous gas along the right hip, expected postoperatively. Vascular calcifications. Impression: Right total hip arthroplasty hardware is intact. No acute fracture. Dictated by Samantha Garcia MD @ 11/29/2024 7:52:56 AM (Electronically Signed) Procedure Note Samantha Garcia MD - 11/29/2024 For Patients: As a result of the Cures Act, medical imagingexams and procedure reports are released immediately into your electronicmedical record. You may view this report before your referring provider.If you have questions, please contact your health care provider. Indication: Hemiarthroplasty Technique: Pelvis 1 view. Comparison: Pelvis radiograph 08/27/2024 Findings: Bones: Right total hip arthroplasty. Hardware is intact. No acutefracture. Joint spaces: Mild osteoarthritis of the left hip.. Soft tissues: Soft tissue swelling and subcutaneous gas along the righthip, expected postoperatively. Vascular calcifications. Impression: Right total hip arthroplasty hardware is intact. No acute fracture. Dictated by Samantha Garcia MD @ 11/29/2024 7:52:56 AM (Electronically Signed) Kim [facility] Final R esult * XR C-ARM EQUAL OR GREATER 2 HR (11/28/2024 1:14 PM CDT) Anatomical Region Laterality Modality Other Narrative 11/28/2024 12:06 PM CDT 27 seconds fluoroscopy time was provided. See operative/procedure report for further information. Curly Toure DO FLUOROSCOPY Final Resu lt * XR HIP 1 VIEW W PELVIS RIGHT PORTABLE (11/28/2024 1:13 PM CDT) Anatomical Region Laterality Modality HIPS, HIPL, Pelvis Digital Radio graphy 11/28/2024 2:30 PM CDT Impressions 11/28/2024 2:30 PM CDT C-arm fluoroscopy for right THR. Dictated by Aniket Hudson MD @ Nov 28 2024 2:30PM (Electronically Signed) [email or web address] Narrative 11/28/2024 2:30 PM CDT For Patients: As a result of the Cures Act, medical imaging exams and procedure reports are released immediately into your electronic medical record. You may view this report before your referring provider. If you have questions, please contact your health care provider. INDICATION: Right THR TECHNIQUE: C-arm fluoroscopy for right THR. Ten C-arm spot images were obtained. Fluoroscopy time was 27.3 seconds. COMPARISON: 08/27/2024 FINDINGS: C-arm fluoroscopy for right THR. Prosthetic components well-seated and aligned on the final images provided. Procedure Note Aniket Hudson MD - 11/28/2024 For Patients: As a result of the Cures Act, medical imagingexams and procedure reports are released immediately into your electronicmedical record. You may view this report before your referring provider.If you have questions, please contact your health care provider. INDICATION: Right THR TECHNIQUE: C-arm fluoroscopy for right THR. Ten C-arm spot images were obtained.Fluoroscopy time was 27.3 seconds. COMPARISON: 08/27/2024 FINDINGS: C-arm fluoroscopy for right THR. Prosthetic components well-seated andaligned on the final images provided. IMPRESSION: C-arm fluoroscopy for right THR. Dictated by Aniket Hudson MD @ Nov 28 2024 2:30PM (Electronically Signed) [email or web address] Curly Toure DO GENERAL IMAGING Final Resu lt * HG TRAY PR10 (11/28/2024 12:07 PM CDT) Narrative Wayne Gomez MD - 11/28/2024 12:07 PM CDT Wayne Gomez MD 11/28/2024 12:08 PM Spinal Block Patient location during procedure: OR Start time: 11/28/2024 11:30 AM End time: 11/28/2024 11:39 AM Reason for block: primary anesthetic PreProcedure Checklist Completed: patient identified, risks and benefits discussed, timeout performed, hand hygiene performed, chloraprep used and completely dried prior to procedure, IV checked, site marked, surgical consent and hand hygiene performed Spinal Block Patient position: sitting Prep: chloraprep Patient monitoring: continuous pulse oximetry, blood pressure and ECG Supplemental O2: yes Approach: midline Skin Infiltration: lidocaine 1% Location: L3-4 Needle Needle type: pencil-point Needle gauge: 24 G Needle length: 3.5 in Assessment Events: no complications. Wayne Gomez MD ANESTHESIA PX NOTE ORDER JOHN Final Result * TYPE & SCREEN (11/28/2024 8:54 AM CDT) Pathologist [facility] ABORH A Rh Positive 11/28/2024 10:01 AM CDT [facility] ANTIBODY SCREEN Negative Negative 11/28/2024 10:01 AM CDT [facility] SPECIMEN EXPIRATION DATE/TIME 12/01/24 23:59 11/28/2024 10:01 AM CDT [facility] Blood BLOOD SPECIMEN / Unknown Venipuncture / Unknown 11/28/2024 8:54 AM CDT 11/28/2024 9:05 AM CDT Wayne Gomez MD BLOOD BANK Final Re sult [facility] [address] [place] [address], * SCAN-CARDIAC STRIP (11/28/2024 12:00 AM CDT) Narrative 11/28/2024 12:00 AM CDT Ordered by an unspecified provider. Other Clinical Staff OTHER Final Resul t * IRON PLUS IRON BINDING CAP (11/11/2024 10:54 AM CDT) IRON, TOTAL 92 45 - 160 mcg/dL [facility] IRON BINDING CAPACITY 307 250 - 450 mcg/dL (calc) [facility] % SATURATION 30 16 - 45 % (calc) [facility] Blood BLOOD SPECIMEN / Unknown 11/11/2024 10:54 AM CDT 11/11/2024 10:54 AM CDT Priscila [facility]TEGA [facility]MI[facility] Final Resu lt [facility] [address] [address], [place] [phone] [facility] [address] [place] [address] * APTT (11/11/2024 10:54 AM CDT) [facility] PARTIAL THROMBOPLASTIN TIME, ACTIVATED 27 23 - 32 sec [email or web address] Comment: This test has not been validated for monitoring unfractionated heparin therapy. For testing that is validated for this type of therapy, please refer to the Heparin Anti-Xa assay (test code 62848). For additional information, please refer to http://education.Duel/faq/TZD309 (This link is being provided for informational/educational purposes only.) Blood BLOOD SPECIMEN / Unknown 11/11/2024 10:54 AM CDT 11/11/2024 10:54 AM CDT Priscila ORTEGA HEMATOLOG[facility] Final Resu lt [employer] [address] [address], [place] [phone] [facility] [address] [place] [phone] * (ABNORMAL) CBC AND DIFFERENTIAL (11/11/2024 10:54 AM CDT) [facility] WHITE BLOOD CELL COUNT 5.7 3.8 - 10.8 Thousand/u L [facility] RED BLOOD CELL COUNT 4.98 3.80 - 5.10 Million/uL [facility] HEMOGLOBIN 13.4 11.7 - 15.5 g/dL [facility] HEMATOCRIT 43.5 35.0 - 45.0 % [facility] MCV 87.3 80.0 - 100.0 fL [facility] MCH 26.9(L) 27.0 - 33.0 pg [facility] MCHC 30.8(L) 32.0 - 36.0 g/dL [facility] Comment: For adults, a slight decrease in the calculated MCHC value (in the range of 30 to 32 g/dL) is most likely not clinically significant; however, it should be interpreted with caution in correlation with other red cell parameters and the patient's clinical condition. RDW [facility] Comment: Due to platelet or RBC variability in size or shape the result cannot be reported accurately. PLATELET COUNT 331 140 - 400 Thousand/u L [facility] MPV 10.2 7.5 - 12.5 fL [facility] ABSOLUTE NEUTROPHILS 3,414 1,500 - 7,800 cells/uL [facility] ABSOLUTE LYMPHOCYTES 1,288 850 - 3,900 cells/uL [facility] ABSOLUTE MONOCYTES 559 200 - 950 cells/uL [facility] ABSOLUTE EOSINOPHILS 348 15 - 500 cells/uL [facility] ABSOLUTE BASOPHILS 91 0 - 200 cells/uL [facility] NEUTROPHILS 59.9 % [facility] LYMPHOCYTES 22.6 % [facility] MONOCYTES 9.8 % [facility] EOSINOPHILS 6.1 % [facility] BASOPHILS 1.6 % [facility] Blood BLOOD SPECIMEN / Unknown 11/11/2024 10:54 AM CDT 11/11/2024 10:54 AM CDT us Priscila ORTEGA HEMATOLOGY Final Resu lt [facility] [address] [place] [address], [facility] [address] [place] [address] * FERRITIN (11/11/2024 10:54 AM CDT) Pathologist [facility] FERRITIN 53 16 - 288 ng/mL [facility] Blood BLOOD SPECIMEN / Unknown 11/11/2024 10:54 AM CDT 11/11/2024 10:54 AM CDT Priscila ORTEGA CHEMISTRY Final Resu lt [facility] [address] [place] [address], [facility] [address] [place] [address] * COMP METABOLIC PANEL (11/11/2024 10:54 AM CDT) Pathologist [facility] GLUCOSE 95 65 - 99 mg/dL [facility] Comment: Fasting reference interval UREA NITROGEN (BUN) 16 7 - 25 mg/dL [facility] CREATININE 0.89 0.60 - 0.95 mg/dL [facility] EGFR 65 > OR = 60 mL/min/1. 73m2 [facility] BUN/CREATININE RATIO SEE NOTE: 6 - 22 (calc) [facility] Comment: Not Reported: BUN and Creatinine are within reference range. SODIUM 138 135 - 146 mmol/L [facility] POTASSIUM 4.5 3.5 - 5.3 mmol/L [facility] CHLORIDE 103 98 - 110 mmol/L [facility] CARBON DIOXIDE 29 20 - 32 mmol/L [facility] CALCIUM 9.5 8.6 - 10.4 mg/dL [facility] PROTEIN, TOTAL 6.8 6.1 - 8.1 g/dL [facility] ALBUMIN 4.1 3.6 - 5.1 g/dL [facility] GLOBULIN 2.7 1.9 - 3.7 g/dL (calc) [facility] ALBUMIN/GLOBULIN RATIO 1.5 1.0 - 2.5 (calc) [facility] BILIRUBIN, TOTAL 0.4 0.2 - 1.2 mg/dL [facility] ALKALINE PHOSPHATASE 60 37 - 153 U/L [facility] AST 16 10 - 35 U/L [facility] ALT 14 6 - 29 U/L [facility] Blood BLOOD SPECIMEN / Unknown 11/11/2024 10:54 AM CDT 11/11/2024 10:54 AM CDT Priscila ORTEGA CHEMISTRY Final Resu lt [facility] [address] [place] [address], [place] [phone] [facility] [address] [place] [address] * ABORH TYPE (11/11/2024 10:53 AM CDT) ABORH A Rh Positive 11/11/2024 3:38 PM CDT [facility] Blood BLOOD SPECIMEN / Unknown [facility] / Unknown 11/11/2024 10:53 AM CDT 11/11/2024 10:53 AM CDT Priscila ORTEGA BLOOD BANK Final Resu lt [facility] [address] [place] [address], [place] [phone] * PROTIME-INR (11/11/2024 10:53 AM CDT) INR 0.9 <1.3 11/11/2024 3:07 PM CDT [facility] PROTIME 10.7 10.6 - 12.4 sec 11/11/2024 3:07 PM CDT [facility] Blood BLOOD SPECIMEN / Unknown [facility] / Unknown 11/11/2024 10:53 AM CDT 11/11/2024 10:53 AM CDT Narrative [facility] - 11/11/2024 3:07 PM CDT Therapeutic Range 2.0-3.0 for most anticoagulated patients 2.5-3.5 or 4.0 for high risk patients The INR is only used for patients on stable oral anticoagulant therapy. It makes no significant contribution to the diagnosis or treatment of patients whose Protime is prolonged for other reasons. INR results are increased when heparin levels exceed 1.0 U/mL, which corresponds to an aPTT >125 seconds if the patient is on UFH. us Priscila ORTEGA HEMATOLOGY Final Resu lt [facility] [address] [place] [address], from Last 3 Months Insurance MEDICARE PART A HB ONLY [facility] [employer] PPS Advance Directives * Full Code (Latest Code Status on File) Date Activated Date Inactivated Comments 11/28/2024 4:51 PM 11/29/2024 4:24 PM per consent form Question Answer Comments Code Status Discussion: Reviewed Preferences * Full Code Date Activated Date Inactivated Comments 11/28/2024 8:30 AM 11/28/2024 4:51 PM per surgical consent form Question Answer Comments Code Status Discussion: Reviewed Preferences * Full Code Date Activated Date Inactivated Comments 11/26/2017 5:35 PM 11/28/2017 1:02 PM Care Teams Vocational Adviser Relationship Specialty Start Date End Date Priscila Clark PA [address] [place] [address] PCP - General Physician Neuro Ophthalmologist 09/15/24
[2025-01-07 08:32] VITALS: BP 139/70; PULSE 80; RESP 18; TEMP 36.6; O2SAT 97; BMI 40.2
--- NOTE | 2025-01-07 09:01 | ED.GENADULT ---
HPI - General Adult General Chief complaint: Unspecified Complaint, Adult Stated complaint: Hives Time Seen by Provider: 01/07/25 08:29 History of Present Illness HPI narrative: Patient is an 84 white female who has not changed any detergents, cosmetics or medications recently developed hives today. She has had no throat swelling or shortness of breath no breathing difficulty. She had a hip replaced several months ago. That is been going well. No fevers, chills, cough or breathing difficulty, no chest pain. She has not had a history of some significant allergic reactions other than the penicillin. No antibiotics recently. Related Data Home Medications ?Medication ?Instructions ?Recorded ?Confirmed gabapentin 100 mg capsule 100 mg PO BID 01/07/25 01/07/25 Previous Rx's ?Medication ?Instructions ?Recorded apixaban 5 mg tablet (Eliquis) 5 mg PO BID #60 tabs 10/06/23 metoprolol succinate 25 mg 25 mg PO DAILY #30 tabs 10/06/23 tablet,extended release 24 hr metoprolol succinate 50 mg 50 mg PO DAILY #30 tabs 04/19/24 tablet,extended release 24 hr acetaminophen 300 mg-codeine 30 mg 1 tab PO Q6H PRN pain #15 tabs 06/16/24 tablet prednisone 20 mg tablet 20 mg PO BID #10 tabs 01/07/25 Allergies Allergy/AdvReac Type Severity Reaction Status Date / Time Penicillins Allergy Verified 01/07/25 08:38 novacaine Allergy Intermediate Uncoded 04/19/24 09:34 Review of Systems Status of ROS: Reports: 6 or more systems reviewed and unremarkable except as noted in History and below PFSH PFS Medical History Atrial fibrillation with RVR ?I48.91 - Unspecified atrial fibrillation (ICD-10) Surgical History Status post placement of cardiac pacemaker ?Z95.0 - Presence of cardiac pacemaker (ICD-10) Social History Smoking Status: Never smoker Do you use any of these nicotine containing products: None How often do you have a drink containing alcohol: never How often do you have six or more drinks on one occasion: Never AUDIT-C Alcohol total score: 0 Non-prescribed substance use: denies use service: No Exam Narrative: Exam Narrative: Objective: Patient's vital signs look unremarkable O2 sats excellent 97% She has got urticarial rash over her forearms and legs the bit on her anterior chest as well. She had a hip replaced in November I looked at this area and there is just looks like healing changes along the scar. Const: Vital Signs, click to edit/add: Vital Signs - 24 hr 01/07/25 08:32 Temperature 97.9 F Pulse Rate [Right Pulse Oximeter] 80 Respiratory Rate 18 Blood Pressure [Ri ght Upper Arm] 139/70 Pulse Oximetry 97 Oxygen Delivery Me thod Room Air Course Vital Signs Vital signs: Initial Vital Signs Temperature 97.9 F 01/07/25 08:32 Temperature Source Temporal Artery Scan 01/07/25 08:32 Pulse Rate 80 01/07/25 08:32 Pulse Rhythm Regular 01/07/25 08:32 Pulse Strength 3+ Normal 01/07/25 08:32 Respiratory Rate 18 01/07/25 08:32 Blood Pressure 139/70 01/07/25 08:32 Blood Pressure Mean 93 01/07/25 08:32 Blood Pressure Position Sitting 01/07/25 08:32 Pulse Oximetry 97 01/07/25 08:32 Oxygen Delivery Method Room Air 01/07/25 08:32 Vital Signs Temperature 97.9 F 01/07/25 08:32 Pulse Rate 80 01/07/25 08:32 Respiratory Rate 18 01/07/25 08:32 Blood Pressure 139/70 01/07/25 08:32 Pulse Oximetry 97 01/07/25 08:32 Oxygen Delivery Method Room Air 01/07/25 08:32 Temperature 97.9 F 01/07/25 08:32 Pulse Rate 80 01/07/25 08:32 Respiratory Rate 18 01/07/25 08:32 Blood Pressure 139/70 01/07/25 08:32 Pulse Oximetry 97 01/07/25 08:32 Oxygen Delivery Method Room Air 01/07/25 08:32 Medications Administered Medications: Discontinued Medications Generic Name Dose Route Start Last Admin Trade Name Freq PRN Reason Stop Dose Admin Diphenhydramine HCl 25 mg 01/07/25 09:01 01/07/25 09:08 Diphenhydramine 25 Mg Capsule PO 01/07/25 09:02 25 mg ONCE ONE Administration Prednisone 50 mg 01/07/25 09:15 01/07/25 09:08 Prednisone 20 Mg Tablet PO 01/07/25 09:16 50 mg ONCE ONE Administration Medical Decision Making MDM Narrative Medical decision making narrative: 84-year-old female with urticaria. At this point I think Benadryl 25 mg t.i.d. for the next several days as well as prednisone 20 b.i.d. starting tomorrow for 5 days would be appropriate. Think through her potential allergens that might be new at home for her. Follow up with primary care in the next 5-7 days not resolving sooner to the ER for worsening or changes. Discuss the nature of urticaria and that allergy testing at some point might be reasonable but at this point I think simply treatment be appropriate. Discharge Plan Discharge Clinical Impression: Urticaria Patient Disposition: Home w/ Parent or Adult Condition: Stable Additional Instructions: Benadryl 25 mg 3 times a day for the next 3 days and then as needed. Prednisone 20 mg b.i.d. x5 days. Return here doctor in 5-7 days not fully resolved, return to the ED sooner problems or concerns. Start the prednisone prescription tomorrow as she got a good dose of prednisone today in the emergency department. Activity Level: Light activity Discharge Diet: Regular Prescriptions: New prednisone 20 mg tablet 20 mg PO BID Qty: 10 0RF No Action metoprolol succinate 50 mg tablet extended release 24 hr 50 mg PO DAILY Qty: 30 2RF acetaminophen-codeine 300-30 mg tablet 1 tab PO Q6H PRN (Reason: pain) Qty: 15 0RF metoprolol succinate 25 mg tablet extended release 24 hr 25 mg PO DAILY Qty: 30 0RF Eliquis 5 mg tablet 5 mg PO BID Qty: 60 0RF gabapentin 100 mg capsule 100 mg PO BID Follow Up/Referrals: Priscila Clark PA-C [Primary Care Provider, Family Practice] Stand Alone Forms: [email or web address] Info Instructions
== END 2025-01-07 09:12 | disposition home or self-care (01) ==
PROVIDERS: Emergency Provider Family Medicine; PCP Physician Assistant
DX: L50.9 Urticaria, unspecified (principal)
CPT/HCPCS: 99283; A9270; J7512